=== PATIENT | male | born 1960 | race Caucasian/White ===

== ENCOUNTER → 2017-07-10 16:33 | Outpatient (CLI) | payer OTHER, SELFPAY ==
[2017-07-10 18:23] LABS: Hemoglobin A1c 6.7 % (4.2-6.3)
== END ==
PROVIDERS: Family Provider Family Medicine; PCP Family Medicine; Visit Provider Family Medicine
DX: E11.42 Type 2 diabetes mellitus with diabetic polyneuropathy (principal)
CPT/HCPCS: 36415; 83036

== ENCOUNTER → 2017-12-14 17:19 | Outpatient (CLI) | payer BC, SELFPAY ==
--- NOTE | 2017-12-14 | BLA_PTH ---
PATIENT: KATALINA ZEPEDA LOC: [facility] U#:[id number] AGE/SX: 65/M ROOM: RE12/14/[address]: Dr. Oskar Mcgarry MD : 1960 BED: DIS: SPEC #: [id number] RECD: 12/15/17 08:02 STATUS: EMIL OTF #: [id number] STEF: 12/14/17 00:[address]: Oskar Mcgarry DEPT: SURGICAL PATHOLOGY RECD BY: Johann Reyes ENTERED: 12/15/17 08:02 SP TYPE: BLADDER BX OTHR DR: Dr. Gasper Liang MD Tissues: Urinary bladder, NOS Procedures: Surgery Specimen Level V HEADER OPERATION: Bladder biopsy PRE-OP DIAGNOSIS: Hematuria TISSUE SUBMITTED: Bladder biopsy MICROSCOPIC DIAGNOSIS Urinary bladder, TUR: Urothelial carcinoma. See cancer checklist below. AM:se 12/17/17 COMMENT BLADDER CANCER (TUR) SUMMARY: Procedure - biopsy Histologic type ? urothelial carcinoma Associated epithelial lesions ? none identified Histologic grade ? low grade (WHO) Tumor configuration ? focal papillary Detrusor muscle ? not present in biopsy. Lymph-Vascular invasion ? not identified Microscopic extent of tumor ? noninvasive carcinoma Additional pathologic findings ? mild chronic inflammation. The above summary is in compliance with [employer] (CAP) Cancer Protocols Checklist and [place] Joint Committee on Cancer (AJCC), Staging Manual, 8th Ed. Reference is made to the patient?s previous bladder biopsy from 05/26/17 in which focal high grade urothelial dysplasia was identified. MICROSCOPIC DESCRIPTION Slides are reviewed. GROSS DESCRIPTION Received is one container labeled with the patient's name and not further designated. The specimen consists of one irregular fragment of light harden soft tissue that measures 0.2 x 0.1 x 0.1 cm. The specimen is totally submitted in one cassette. / AM:se 12/15/17 TC:0 CPT: 49536 ADDENDUM ADDENDUM ADDENDUM ADDENDUM ADDENDUM ADDENDUM ADDENDUM ADDENDUM ADDENDUM ADDENDUM ADDENDUM ADDENDUM 09/07/2018 11:38 ADDENDUM 09/07/2018 11:38 ADDENDUM 09/07/2018 11:38 ADDENDUM 09/07/2018 11:38 ADDENDUM 09/07/2018 11:38 This addendum is added to incorporate an outside pathology consultation report. The case was examined at [facility] (#[id number]) and the following diagnosis was rendered. Urinary bladder, TUR: Urothelial carcinoma in situ. Muscularis propria is not identified. Please see complete above mentioned consultation report in EMR
== END ==
PROVIDERS: Family Provider Family Medicine; PCP Family Medicine; Visit Provider Urology
DX: R31.9 Hematuria, unspecified (principal)
CPT/HCPCS: 88305; 88307

== ENCOUNTER → 2018-02-02 08:34 | Outpatient (CLI) | payer BC, SELFPAY ==
[2018-02-02 10:44] LABS: Anion Gap 7 (5-15); BUN 15 mg/dL (7-18); BUN/Creat Ratio 13.6 RATIO (10-20); Calcium,Total 8.9 mg/dL (8.5-10.1); Chloride 106 mmol/L (98-107); Cholesterol 126 mg/dL (200); EST Glomerular Filtration Rate 73 mL/min (>60); Est Glom Filt Rate - Afr Amer 88 mL/min (>60); Glucose 132 mg/dL (74-106); High Density Lipoprotein 29 mg/dL; Potassium 4.6 mmol/L (3.5-5.1); Sodium Level 140 mmol/L (136-145); Triglycerides 207 mg/dL; Very Low Density Lipoprotein 41 mg/dL (5-40)
== END ==
PROVIDERS: Family Provider Family Medicine; PCP Family Medicine; Visit Provider Family Medicine
DX: I10 Essential (primary) hypertension (principal)
CPT/HCPCS: 36415; 80048; 80061

== ENCOUNTER 2018-06-04 10:06 | Day surgery (SDC) | payer BC, SELFPAY ==
--- NOTE | 2018-06-03 12:56 | EKG12_ITS ---
Test Reason : PRE OP Blood Pressure : / mmHG Vent. Rate : 043 BPM Atrial Rate : 043 BPM P-R Int : 170 ms QRS Dur : 092 ms QT Int : 430 ms P-R-T Axes : 087 066 085 degrees QTc Int : 363 ms Marked sinus bradycardia with sinus arrhythmia Septal infarct , age undetermined Abnormal ECG Confirmed by MEGAN CASSIDY, USAMA ([id number]), supervising film or videotape editor YOGESH NASCIMENTO ([id number]) on 06/04/2018 1:16:04 PM Referred By: Oskar Mcgarry Confirmed By:USAMA GUZMAN MD
[2018-06-03 14:03] LABS: Hematocrit 54.7 % (40-54); Hemoglobin 18.7 g/dl (13.0-16.5); Mean Corp Hgb Conc 34.2 g/gl (32-36); Mean Corpuscular Hgb 32.4 pg (27.0-32.0); Mean Corpuscular Volume 94.6 fL (80-94); Mean Platelet Vol. 11.1 fl (6.2-12.0); Platelet Count 135 K/mm3 (150-450); RBC Distribution Width SD 48.2 fl (35.1-43.9); Red Blood Count 5.78 M/mm3 (4.6-6.2); White Blood Count 5.7 K/mm3 (4.4-11.0)
[2018-06-03 14:04] LABS: Scan Indicated on CBC? Y/N NO
[2018-06-03 14:16] LABS: Hemoglobin A1c 6.9 % (4.2-6.3)
[2018-06-03 14:35] LABS: Anion Gap 6 (5-15); BUN 18 mg/dL (7-18); BUN/Creat Ratio 19.6 RATIO (10-20); Chloride 105 mmol/L (98-107); Creatinine, Serum 0.92 mg/dL (0.70-1.30); EST Glomerular Filtration Rate 90 mL/min (>60); Est Glom Filt Rate - Afr Amer 108 mL/min (>60); Glucose 148 mg/dL (74-106); Potassium 4.9 mmol/L (3.5-5.1); Sodium Level 141 mmol/L (136-145)
[2018-06-04] VITALS (7 sets, daily range): BP systolic 114–143; BP diastolic 55–71; PULSE 45–77; RESP 16–18; TEMP 36.1–36.3; O2SAT 92–97; BMI 37.5
--- NOTE | 2018-06-04 | IMM_PTH ---
PATIENT: KATALINA ZEPEDA LOC: [facility] [place] U#:[id number] AGE/SX: 58/M ROOM: RE06/04/[address]: Dr. Oskar Mcgarry MD : 1960 BED: DIS: 06/04/2018 SPEC #: [id number] RECD: 06/09/18 12:26 STATUS: EMIL REQ #: [id number] STEF: 06/04/18 00:[address]: Oskar Mcgarry DEPT: IMMUNOHISTOCHEMISTRY RECD BY: Mary Beth Hansen ENTERED: 06/09/18 12:27 SP TYPE: IMMUNO OTHR DR: MD Dr. Gasper Vealzquez MD Tissues: Urinary bladder, NOS Procedures: CK20 (add) P53 (add) CK7 (initial) PHYSICIAN & INSTITUTION [place] [id number] SPECIMEN INFORMATION: Tissue Source: Bladder tumor Clinical Info: Malignant neoplasm of overlapping sites of bladder Specimen Number: [id number] CPT code: 49975, 93073 x2 METHODOLOGY: Deparaffinized sections of prefer/formalin-fixed tissue or PAP/DQ stained slides are incubated with monoclonal/polyclonal antibodies/oligonucleotide probes. Localization is made via biotin free immunoperoxidase method. Appropriate controls are performed and reacted as expected. Results on target cell population are indicated in the following table: RESULTS: ANTIBODY / CLONE RESULT CK7 (OV-TL12/30) positive CK20 (KS20.8) positive P53 (DO-7) positive These tests were developed and their performance characteristics determined by [facility]. They may not have been cleared or approved by the U.S. Food and Drug Administration. The FDA has determined that such clearance or approval is not necessary. INTERPRETATION: Bladder tumor, TUR: Consistent with urothelial carcinoma in situ. AM:se 06/10/18
[2018-06-04 10:51] LABS: Bedside Glucose 122 mg/dL (70-110)
--- NOTE | 2018-06-04 12:20 | BLB_PTH ---
PATIENT: KATALINA ZEPEDA LOC: [facility] [place] U#:[id number] AGE/SX: 58/M ROOM: RE06/04/[address]: Dr. Oskar Mcgarry MD : 1960 BED: DIS: 06/04/2018 SPEC #: [id number] RECD: 06/04/18 15:29 STATUS: EMIL OTF #: [id number] STEF: 06/04/18 12:[address]: Oskar Mcgarry DEPT: SURGICAL PATHOLOGY RECD BY: Yves Elkins ENTERED: 06/07/18 13:20 SP TYPE: TURB OTHR DR: MD Dr. Gasper Velazquez MD Tissues: Urinary bladder, NOS Procedures: Surgery Specimen Level V HEADER OPERATION: Cystoscopy, transurethral resection of bladder PRE-OP DIAGNOSIS: Malignant neoplasm of overlapping sites of bladder TISSUE SUBMITTED: Bladder tumor MICROSCOPIC DIAGNOSIS Urinary bladder tumor, transurethral resection: Fragments of urothelial mucosa consistent with urothelial carcinoma in situ. See cancer checklist below. AM:rg 06/10/18 COMMENT BLADDER CANCER (TUR) SUMMARY: Procedure - TURBT Histologic type - urothelial (transitional cell carcinoma. Associated epithelial lesions - none identified Histologic grade - low grade Tumor configuration - flat (papillary carcinoma in situ) Detrusor muscle - present and free of tumor. 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 The above summary is in compliance with [employer] (CAP) Cancer Protocols Checklist and [place] Joint Committee on Cancer (AJCC), Staging Manual, 8th Ed. Immunohistochemistry ([id number]) supports the above diagnosis. Please make reference to previous specimen ([id number]) urinary bladder lesion, TUR with diagnosis of focal high grade urothelial dysplasia and ([id number]) urinary bladder, TUR with diagnosis of urothelial carcinoma. Case has been reviewed in consultation with Dr. Allison who concurs with the above diagnosis. IDC:[email or web address] MICROSCOPIC DESCRIPTION Slides are reviewed. GROSS DESCRIPTION Received in fixative is one container labeled with the patient's name and designated bladder tumor. The specimen consists of multiple irregular fragments of light harden soft tissue that in aggregate measure 2.5 x 1.5 x 0.3 cm. The specimen is totally submitted in one cassette. / SJ:rg 06/07/18 TC:0 CPT: 73544 ADDENDUM ADDENDUM ADDENDUM ADDENDUM ADDENDUM ADDENDUM ADDENDUM ADDENDUM ADDENDUM ADDENDUM ADDENDUM 09/07/2018 11:40 ADDENDUM 09/07/2018 11:40 ADDENDUM 09/07/2018 11:40 ADDENDUM 09/07/2018 11:40 ADDENDUM 09/07/2018 11:40 This addendum is added to incorporate an outside pathology consultation report. The case was examined at [facility] (#[id number]) and the following diagnosis was rendered. Urinary bladder tumor, transurethral resection: Urothelial carcinoma in situ. Muscularis propria is negative for neoplasia. Please see complete above mentioned consultation report in EMR
[2018-06-04] MEDS: Cefazolin 2 GM in 0.9% Normal Saline 100 ML IV (14:15)
--- NOTE | 2018-06-04 14:53 | PCM.DC.URO ---
Discharge Diet: Light diet - advance as tolerated Discharge Activity: Return to Normal Activity Call your doctor if your incision/area has: Continuous Slow Oozing, Sudden Increased Bleeding, Increased Pain/ Swelling, Increased Redness, Foul Smelling Discharge, Swelling at the incision site Call your doctor if you observe: Fever of 101 or Higher Allergies/Adverse Reactions: Allergies codeine Allergy (Verified 06/03/18 11:46) Other MIGRAINE Medications to take at Discharge Albuterol Inhaler [Ventolin Hfa (SP)] 1 - 2 puff INHALATION Q4H PRN PRN 05/14/17 Amlodipine Besylate [Norvasc] 10 mg PO DAILY 05/14/17 Aspirin [Aspirin EC] 81 mg PO DAILY 05/14/17 Carvedilol [Coreg] 25 mg PO BID 05/14/17 Losartan Potassium [Cozaar] 50 mg PO DAILY 05/14/17 Metformin HCl [Glucophage] 1,000 mg PO BIDCM 05/14/17 Multivit-Min/FA/Lycopen/Lutein [Centrum Silver Men Tablet] 1 each PO DAILY 05/14/17 [place]-3 Fatty Acids [Fish Oil] 500 mg PO DAILY 05/14/17 Empagliflozin [Jardiance] 10 mg PO DAILY 06/03/18 Oxybutynin [Ditropan] 5 mg PO TID 06/03/18 Orders to be completed after discharge: 12 Lead EKG [CVS] Time Frame: 06/03/18, Location: None Selected Hemoglobin A1c Time Frame: 06/03/18, Location: Laboratory Basic Metabolic Profile (BMP) Time Frame: 06/03/18, Location: Laboratory CBC-Complete Blood Cnt No Diff Time Frame: 06/03/18, Location: Laboratory Primary Care Physician: Gasper Liang MD [Primary Care Provider] - Test Results: Test results from this visit will be discussed in further detail at your follow-up appointment, if applicable. Please Follow Up With: Oskar Mcgarry MD When: in 2 weeks, please call to make an appointment.
--- NOTE | 2018-06-04 15:00 | OP.PCM_ITS ---
Report of Operation Date of Procedure: 06/04/18 Pre-Operative Diagnosis: History of bladder biopsy in the past with dysplasia and history of high-grade dysplasia and history of biopsy with low-grade bladder cancer. Erythematous mucosa throughout the bladder and the dome Post-Operative Diagnosis: Same Surgery/Procedure Performed:: Transurethral resection of the mucosa large resection involving the dome left lateral wall right lateral wall and cauterization Description of Surgical Findings:: 58-year-old male has a somewhat confusing history he does have a lot of frequency urethral irritation and voiding problems we did a biopsy of his aneesh dder about a year ago came back with high-grade dysplasia set of the urine cytology came back negative, we then did a bladder biopsy this past summer that came back with low-grade bladder cancer and follow-up cystoscopy he still had erythematous red area in the back of the bladder and the dome of the bladder lateral moffett to be these look suspicious for carcinoma in situ so I recommended we do biopsies and cauterization of these areas. Patient was taken back to the operating room after smooth induction of general anesthesia he was placed in dorsolithotomy position the penis and testicles are prepped and draped in usual sterile fashion went into the bladder with a 24 Salv[place] noncontinuous flow resectoscope the entire urethra was normal the prostate was normal inside the bladder left to right drug trigone was normal he did have a lot of bumpy reddish mucosa on the right lateral wall allowed bumpy reddish mucosa in the dome of the bladder and the left lateral wall I resected in the left lateral wall resected in the dome of the bladder resected right lobe right lateral wall pretty large resection left tissue area resected this is all extensively cauterized tissue that was sent off did not appear to be invasive cancer but appear to be more of either inflammation of the lining or carcinoma in situ is my suspicion after again extensive amount of resection cauterization was done that all the pieces of tissue were removed and the bladder we instilled mitomycin-C into the bladder and then took out the scope the patient's anesthetic was reversed plan to see him back in about 2 weeks to review the pathology report we will go home today without a catheter. Type of Anesthesia:: General Drains: none - Admit VTE Documentation VTE Present on Admission: No
[2018-06-04 15:51] LABS: Bedside Glucose 131 mg/dL (70-110)
--- NOTE | 2018-06-04 17:19 | SUR.PHASEII ---
INFORMED PT THAT DR. FLORES ORDERED A SUGGS CATHETER TO BE INSERTED AND FOR THE PT TO BE D/C WITH CATHETER AND TO CALL HIS OFFICE NEXT WEEK FOR THE SUGGS CATHETER TO BE REMOVED. PT REFUSED SUGGS CATHETER. NEW BAG OF LACTATED RINGERS HUNG AND MORE WATER PROVIDED TO PT.
== END 2018-06-04 17:31 | disposition home or self-care (01) ==
LOC: SDC 10:06 → AC 10:07
PROVIDERS: Family Provider Family Medicine; PCP Family Medicine; Referring Provider Urology; Visit Provider Urology
PROC: 0TBB8ZZ Excision of Bladder, Via Natural or Artificial Opening Endoscopic (ICD-10-PCS; CPT 52240; principal; 2018-06-04 12:10)
DX: C67.8 Malignant neoplasm of overlapping sites of bladder (principal); L53.8 Other specified erythematous conditions; I10 Essential (primary) hypertension; E11.9 Type 2 diabetes mellitus without complications; J44.9 Chronic obstructive pulmonary disease, unspecified; F17.200 Nicotine dependence, unspecified, uncomplicated; J45.909 Unspecified asthma, uncomplicated; Z79.82 Long term (current) use of aspirin; Z79.84 Long term (current) use of oral hypoglycemic drugs; Z79.51 Long term (current) use of inhaled steroids
CPT/HCPCS: 52240; 53899; 36415; 80048; 82962; 83036; 85027; 88307; 88341; 88342; 93005; J7120; J2405; J3490; J9280

== ENCOUNTER 2018-06-16 05:01 | Emergency (ER) | payer BC, SELFPAY ==
[2018-06-04 10:32] VITALS: BMI 37.5
[2018-06-16 05:04] VITALS: BP 145/73; PULSE 60; RESP 14; TEMP 36.8; O2SAT 94; BMI 37.3
--- NOTE | 2018-06-16 05:20 | RAD_ITS ---
STUDY: X-RAY - RIGHT FOOT CLINICAL: Male, 58 years old. Trauma TECHNIQUE: 2 view(s) of the foot. COMPARISON: None. FINDINGS: Normal talus, calcaneus, and tarsal bones. Normal visualized subtalar, talonavicular, calcaneocuboid, tarsal and tarsometatarsal articulations. Normal metatarsi. Normal metatarsophalangeal joint of the great toe. Normal tibial and fibular sesamoid bones. Normal interphalangeal joint of the great toe. Normal phalanges of the great toe. Normal second through fifth metatarsophalangeal joints. Normal interphalangeal joints and phalanges of the lesser toes. There is a 2 mm density in the plantar soft tissues adjacent to the first metatarsal phalangeal joint which could be foreign body. RAD/Foot 2 Views IMPRESSION: There are NO fractures. There is a 2 mm density in the plantar soft tissues adjacent to the first metatarsal phalangeal joint which could be foreign body. Electronically Signed: Jimbo Mittal MD at 5:53 EST , Service support ,
--- NOTE | 2018-06-16 06:50 | NURSING ---
DR VINCENT ON HER WAY TO SEE PATIENT
--- NOTE | 2018-06-16 07:18 | NURSING ---
DR VINCENT IN WITH PATIENT
--- NOTE | 2018-06-16 07:47 | ED.VISSUMM ---
- ER Visit Summary Date of Service: 06/16/18 Chief Complaint: Foreign body right foot History of Present Illness: The patient is a [address] Gasper Carter. He has a history of type 2 diabetes and peripheral neuropathy. Reports that today he stepped on a piece of broken glass and it is stuck in his foot. He denies any pain. Review of systems: General: No fever, chills, cold sweats. Cardiovascular: No chest pain, palpitations. Respiratory: No cough, shortness of breath, dyspnea on exertion. Gastrointestinal: No abdominal pain, nausea, vomiting, diarrhea, melena, or hematochezia. Genitourinary: No dysuria, frequency, hematuria. Skin: No rash. Neuro: No headache, numbness, weakness. Physical Examination: Vitals: Stable. Afebrile. General: Well-nourished and well-developed. Head: Normocephalic atraumatic. Neck: Supple, no lymphadenopathy. No JVD. Nontender. Cardiovascular: Regular rate and rhythm. No murmurs. Respiratory: No respiratory distress. Clear to auscultation bilaterally. Abdominal: Soft, nontender, nondistended, normal bowel sounds. No guarding, rebound, or peritoneal signs. Back: Nontender. Extremities: Palpable 1 cm foreign body dorsum of the right foot over the proximal portion of the fifth metatarsal. There is no active bleeding., no edema. Skin: Normal color, no rash. Neurologic: Alert and oriented ?3. Cranial nerves II through XII are intact. Normal strength and sensation. Psych: Normal affect. Test Results: X-ray shows no obvious foreign body. Emergency Department Course and Treatment: Patient had the area anesthetized. I attempted to remove this without success. Patient was discussed with Dr. Cornejo. She presented to the emergency department was able to extend the incision further and remove this. Patient tolerated it well. Treatment Plan: Patient will be discharged instructions follow-up Dr. Cornejo in 1 week for another exam. Is instructed to keep the area clean, dry and with a dressing intact. is instructed to inspect the area daily to make sure it does not appear to be getting infected. Return to the emergency department for any worsening symptoms. Disposition: To home in improved and stable condition. Impression: 1. Foreign body right foot, removed. This note was generated with Dragon dictation software. It may contain incorrect words, spelling, and punctuation that were not noted in review of the chart prior to signing ED Disposition - Plan for ED Patient: Disposition: Home or Assisted Living Chief Complaint: Foreign Body Instructions: ED Foreign Body Soft Tissue Removed Referrals: Marie Cornejo DPM [STAFF PHYSICIAN] - 1 Week
[2018-06-16 08:00] VITALS: BP 115/63; PULSE 51; RESP 16; O2SAT 96
--- NOTE | 2018-06-16 08:07 | PCM.CONS.GEN ---
Problem List (1) Foreign body in foot, right Status: Acute (2) Type 2 diabetes mellitus with diabetic polyneuropathy Status: Chronic Reason for Consult Date of Consultation: 06/16/18 Reason for Consultation: Glass in foot History of Present Illness: The patient is a 58 year old M was seen in the emergency room this morning for right foot foreign body. He reports he thinks he slept and a sliver of glass in his kitchen within the past day. His pain is mild. He reports he does have some loss of sensation and rest paresthesias consistent with diabetic neuropathy. He denies claudication or history of other wounds. He denies illness. His spouse did try to remove the glass and was unable to obtain this. He presented to the emergency room and attempted foreign body was also performed. He relates his tetanus status is up-to-date within the past 10 years. He denies other injuries. Past Medical History Past Medical History (Chronic Problems): Chronic Problems Type 2 diabetes mellitus with diabetic polyneuropathy (Chronic) Allergies codeine Allergy (Verified 06/16/18 05:02) Other MIGRAINE Home Medications: Ambulatory Orders Medication Instructions Recorded Albuterol Inhaler [Ventolin Hfa 1 - 2 puff INHALATION Q4H PRN PRN 05/14/17 (SP)] Amlodipine Besylate [Norvasc] 10 mg PO DAILY 05/14/17 Aspirin [Aspirin EC] 81 mg PO DAILY 05/14/17 Carvedilol [Coreg] 25 mg PO BID 05/14/17 Losartan Potassium [Cozaar] 50 mg PO DAILY 05/14/17 Metformin HCl [Glucophage] 1,000 mg PO BIDCM 05/14/17 [place]-3 Fatty Acids [Fish Oil] 500 mg PO DAILY 05/14/17 Oxybutynin Chloride [Ditropan Xl] 10 mg PO BID #60 tab.er.24 06/04/18 Lives: Spouse/ Significant Other, With Family Smoking Status: Current some day smoker Tobacco Use: Cigarettes Review of Systems Constitutional: Denies: Chills, Fever, Weakness Cardiovascular: Denies: Claudication Respiratory: Denies: Shortness of Breath Gastrointestinal: Denies: Nausea, Vomiting Musculoskeletal: Reports: Foot Pain. Denies: Joint Tenderness Skin: Reports: Skin Changes, Wounds Neurological: Reports: Tingling - Physical Exam General: Alert, Oriented x3, Cooperative HEENT: Atraumatic Extremities: No cyanosis, Capillary Refill Less than 3 Seconds - All digits bilateral foot, No Calf Tenderness - Negative Santana and Worley bilateral, Edema - Mild bilateral lower extremity, Peripheral Pulses Normal - 2 out of 4 PT and DP pulses bilateral Skin: Ulcer/ Wound - Foreign body puncture site with approximately extended incision 1 cm to plantar lateral foot proximal to the fifth metatarsal head region has hematogenous drainage only. There is no purulence necrosis or infection. Upon deep wound bed palpation with instrumentation, foreign body was palpated and audible. This incision was further extended to a total length of 2 cm and 2.2 x 0.5 cm glass sliver was removed in total. No additional foreign bodies were palpated, visualized, or audible on instrument wound exploration. No other foreign body was identified. No maceration Musculoskeletal: - - Active range of motion digits x5 bilateral. Pain on palpation to foreign body wound site right foot. No crepitus or bogginess on palpation. Prior to removal, the the foreign body prominence was palpated just deep skin surface proximal to the incision area Neurological: Sensory exam intact to light touch and pain Psych/Mental Status: Normal Affect, Appropriate Vital Signs Temp Pulse Resp BP Pulse Ox 98.2 F 51 L 16 115/63 96 06/16/18 05:04 06/16/18 08:00 06/16/18 08:00 06/16/18 08:00 06/16/18 08:00 Oxygen Delivery Method Room Air Weight: 118 kg Body Mass Index (BMI) 37.3 Assessment/Plan All Active Problems Foreign body in foot, right (Acute) Right foot foreign body Diabetic neuropathy I reviewed and discussed his case. His x-rays were reviewed without acute fracture dislocation, soft tissue emphysema. There is some altered radiolucency along the plantar aspect of the foot on plain x-ray that is either consistent with this foreign body site or his anatomic contour of the plantar surface of the foot. He also has a metallic foreign body near the first metatarsal head which does not appear to correlate clinically at this time. Upon arrival there is a foreign body entry site with a small incision extended proximally. This area was prepped with Hibiclens and additional local anesthetic was administered proximal to the site to achieve better anesthesia; 5 cc of lidocaine were administered. Clean instrumentation was used to investigate the wound and an approximately 2.2 cm x 0.5 cm glass sliver was identified via palpation and pulled in total from the wound bed. The site was copiously irrigated with normal saline. Deep wound culture was obtained. He was reassured no local signs of infection, purulence, necrosis or other foreign body were identified in the wound at this time. The culture was sent for aerobic and anaerobic for future use in case infection develops; he understands he is high risk due to his diabetic status. Retention sutures with 3-0 nylon were applied to reapproximate the skin. Gauze and Douglas dressing were applied. He was advised to keep this clean, dry, and intact until follow-up [facility] within one week with Dr. Cornejo. He was also advised to call sooner if he has any development of infection signs; he demonstrates understanding. To avoid soaking this foot. To avoid pressure to his foot by walking on his heel with a surgical shoe; I recommend this is dispensed while he is in the emergency room. 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 Thank you for the consultation. I answered all of the patient's questions. Marie Cornejo DPM, FACFAS [facility] [phone]
== END 2018-06-16 08:03 | disposition home or self-care (01) ==
PROVIDERS: Emergency Provider Emergency Medicine; Family Provider Family Medicine; PCP Family Medicine
DX: S91.341A Puncture wound with foreign body, right foot, initial encounter (principal); E11.42 Type 2 diabetes mellitus with diabetic polyneuropathy; I10 Essential (primary) hypertension; F17.210 Nicotine dependence, cigarettes, uncomplicated; Z85.51 Personal history of malignant neoplasm of bladder; Z79.51 Long term (current) use of inhaled steroids; Z79.82 Long term (current) use of aspirin; Z79.84 Long term (current) use of oral hypoglycemic drugs; Z79.899 Other long term (current) drug therapy; W25.XXXA Contact with sharp glass, initial encounter; W45.8XXA Other foreign body or object entering through skin, initial encounter; Y93.01 Activity, walking, marching and hiking; Y92.090 Kitchen in other non-institutional residence as the place of occurrence of the external cause; Y99.8 Other external cause status
CPT/HCPCS: 73620; 87070; 87205; 99284

== ENCOUNTER → 2018-08-06 12:41 | Outpatient (CLI) | payer BC, SELFPAY ==
[2018-08-06 14:27] LABS: Vitamin B12 429 pg/mL (211-911)
== END ==
PROVIDERS: Family Provider Family Medicine; PCP Family Medicine; Referring Provider Family Medicine; Visit Provider Family Medicine
DX: E11.40 Type 2 diabetes mellitus with diabetic neuropathy, unspecified (principal)
CPT/HCPCS: 36415; 82607

== ENCOUNTER → 2018-11-04 | Outpatient (CLI) | payer BC, SELFPAY ==
--- NOTE | 2018-11-04 | CYSPIN_PTH ---
PATIENT: KATALINA ZEPEDA LOC: [facility] U#:[id number] AGE/SX: 58/M ROOM: RE11/04/[address]: Dr. Oskar Mcgarry MD : 1960 BED: DIS: 11/04/2018 SPEC #: [id number] RECD: 11/05/18 09:18 STATUS: EMIL OTF #: [id number] STEF: 11/04/18 00:[address]: Oskar Mcgarry DEPT: CYTOLOGY RECD BY: Alberto Becerril ENTERED: 11/05/18 09:19 SP TYPE: CYSPIN FL OTHR DR: Dr. Gasper Liang MD Tissues: Urine Procedures: Pap Stain (control) Special Stain Group II Cytospin Fluid HEADER OPERATION: Not noted PRE-OP DIAGNOSIS: Bladder CA TISSUE SUBMITTED: Urine for cytology DIAGNOSIS CYTOLOGY Urine for cytology (cytospin): Rare atypical urothelial cells present. See comment. AM:se 11/09/18 COMMENT The findings are nonspecific and could represent a variety of conditions including infection, urolithiasis, instrumentation and low grade urothelial neoplasm. Clinical correlation is necessary. CYTOLOGY STUDY Slides are reviewed. CYTOLOGY GROSS Received is 75 ml of cloudy orange fluid labeled with the patient's name and and designated per the requisition as urine. Submitted for cytology preparation. 11/05/18 TC:? CPT: 20195
[2018-11-04 17:22] LABS: Cytology, Body Fluid / CSF SEE PATHOLOGY REPORT
== END | disposition home or self-care (01) ==
LOC: LABSPEC 16:57
PROVIDERS: Family Provider Family Medicine; PCP Family Medicine; Referring Provider Urology; Visit Provider Urology
DX: C67.9 Malignant neoplasm of bladder, unspecified (principal)
CPT/HCPCS: 88108; 88313

== ENCOUNTER → 2019-02-03 | Outpatient (CLI) | payer BC, SELFPAY ==
--- NOTE | 2019-02-03 | CYSPIN_PTH ---
PATIENT: KATALINA ZEPEDA LOC: [facility] U#:[id number] AGE/SX: 58/M ROOM: RE02/03/[address]: Dr. Oskar Mcgarry MD : 1960 BED: DIS: 02/03/2019 SPEC #: [id number] RECD: 02/04/19 09:13 STATUS: EMIL RETamia #: [id number] STEF: 02/03/19 00:[address]: Oskar Mcgarry DEPT: CYTOLOGY RECD BY: Johann Reyes ENTERED: 02/04/19 09:13 SP TYPE: CYSPIN FL OTHR DR: Dr. Gasper Liang MD Tissues: Urine Procedures: Pap Stain (control) Special Stain Group II Cytospin Fluid HEADER OPERATION: Not noted PRE-OP DIAGNOSIS: Hematuria TISSUE SUBMITTED: Urine for cytology DIAGNOSIS CYTOLOGY Urine for cytology (Cytospin): Rare atypical urothelial cells with squamoid morphology. Acute inflammation. AM:sp 02/07/19 COMMENT A reactive/reparative process is favored. Reference is made to patient's history of urinary bladder in situ carcinoma. Clinical correlation is suggested. CYTOLOGY STUDY Slides are reviewed. CYTOLOGY GROSS Received is 90 ml of clear yellow fluid labeled with the patient's name and and designated per the requisition as urine. Submitted for cytology preparation. / ROSI:se 02/04/19 TC: ? CPT: 82463
[2019-02-03 17:19] LABS: Cytology, Body Fluid / CSF SEE PATHOLOGY REPORT
== END | disposition home or self-care (01) ==
PROVIDERS: Family Provider Family Medicine; PCP Family Medicine; Referring Provider Urology; Visit Provider Urology
DX: C67.9 Malignant neoplasm of bladder, unspecified (principal)
CPT/HCPCS: 88108; 88313

== ENCOUNTER → 2019-02-07 | Outpatient (CLI) | payer BC, SELFPAY ==
[2019-02-07 10:26] LABS: Anion Gap 6 (5-15); BUN 18 mg/dL (7-18); Calcium,Total 8.9 mg/dL (8.5-10.1); Chloride 106 mmol/L (98-107); Cholesterol 138 mg/dL (200); EST Glomerular Filtration Rate 81 mL/min (>60); Est Glom Filt Rate - Afr Amer 98 mL/min (>60); Glucose 146 mg/dL (74-106); High Density Lipoprotein 32 mg/dL; Potassium 4.5 mmol/L (3.5-5.1); Sodium Level 142 mmol/L (136-145); Triglycerides 227 mg/dL; Very Low Density Lipoprotein 45 mg/dL (5-40)
[2019-02-07 10:52] LABS: Microalbumin,Random Urine 42.4 mg/L (NO RANGE EST.)
== END | disposition home or self-care (01) ==
LOC: MFPLAB 08:24
PROVIDERS: Family Provider Family Medicine; PCP Family Medicine; Visit Provider Family Medicine
DX: I10 Essential (primary) hypertension (principal); E11.42 Type 2 diabetes mellitus with diabetic polyneuropathy
CPT/HCPCS: 36415; 80048; 80061; 82043; 82570

== ENCOUNTER 2019-02-18 11:17 | Day surgery (SDC) | payer BC, SELFPAY ==
--- NOTE | 2019-02-18 | IMM_PTH ---
PATIENT: KATALINA ZEPEDA LOC: [facility] [place] U#:[id number] AGE/SX: 58/M ROOM: RE02/18/[address]: Dr. Oskar Mcgarry MD : 1960 BED: DIS: 02/18/2019 SPEC #: [id number] RECD: 02/22/19 11:45 STATUS: EMIL REQ #: [id number] STEF: 02/18/19 00:[address]: Oskar Mcgarry DEPT: IMMUNOHISTOCHEMISTRY RECD BY: Mary Beth Hansen ENTERED: 02/22/19 11:46 SP TYPE: IMMUNO OTHR DR: Dr. Gasper Liang MD Tissues: Urinary bladder, NOS Procedures: CK20 (add) P53 (add) CK7 (initial) PHYSICIAN & INSTITUTION [place] [address] SPECIMEN INFORMATION: Tissue Source: Bladder biopsy Clinical Info: Carcinoma in situ Specimen Number: [id number] CPT code: 92269, 93673 x2 METHODOLOGY: Deparaffinized sections of prefer/formalin-fixed tissue or PAP/DQ stained slides are incubated with monoclonal/polyclonal antibodies/oligonucleotide probes. Localization is made via biotin free immunoperoxidase method. Appropriate controls are performed and reacted as expected. Results on target cell population are indicated in the following table: RESULTS: ANTIBODY / CLONE RESULT CK7 (OV-TL12/30) positive CK20 (KS20.8) negative P53 (DO-7) positive, a few cells These tests were developed and their performance characteristics determined by [facility]. They may not have been cleared or approved by the U.S. Food and Drug Administration. The FDA has determined that such clearance or approval is not necessary. INTERPRETATION: Bladder biopsy: Fragments of urothelial mucosa, negative for malignancy. SJ:se 02/22/19 Case has been reviewed in consultation with Dr. Cardozo who concurs with the above diagnosis. IDC:AM
[2019-02-18 11:45] LABS: Bedside Glucose 139 mg/dL (70-110)
[2019-02-18 11:46] VITALS: BP 132/67; PULSE 53; RESP 16; TEMP 36.6; O2SAT 96; BMI 35.7
[2019-02-18] MEDS: Lactated Ringers 1,000 ML 100 ML IV (11:59)
[2019-02-18 12:09] LABS: Hematocrit 50.7 % (40-54); Hemoglobin 17.6 g/dL (13.0-16.5); Mean Corp Hgb Conc 34.7 g/dL (32-36); Mean Corpuscular Hgb 31.9 pg (27.0-32.0); Mean Corpuscular Volume 91.8 fL (80-94); Mean Platelet Vol. 10.5 fl (6.2-12.0); Platelet Count 140 K/mm3 (150-450); RBC Distribution Width CV 13.3 % (11.6-14.6); Red Blood Count 5.52 M/mm3 (4.6-6.2); White Blood Count 5.7 K/mm3 (4.4-11.0)
--- NOTE | 2019-02-18 13:05 | BLA_PTH ---
PATIENT: KATALINA ZEPEDA LOC: [facility] [place] U#:[id number] AGE/SX: 58/M ROOM: RE02/18/[address]: Dr. Oskar Mcgarry MD : 1960 BED: DIS: 02/18/2019 SPEC #: [id number] RECD: 02/18/19 14:25 STATUS: EMIL KNAPPTamia #: [id number] STEF: 02/18/19 13:[address]: Oskar Mcgarry DEPT: SURGICAL PATHOLOGY RECD BY: Jordin Lutz ENTERED: 02/21/19 08:32 SP TYPE: BLADDER BX OTHR DR: Dr. 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 Negative for malignancy. SJ:se 02/22/19 COMMENT Immunohistochemistry ([id number]) supports the above diagnosis. This case has been reviewed in consultation who concurs with the above diagnosis. MICROSCOPIC DESCRIPTION Slides are reviewed. GROSS DESCRIPTION Received in fixative is one container labeled with the patient's name and designated bladder biopsy. The specimen consists of three irregular fragments of harden soft tissue that in aggregate measure 0.3 x 0.2 x 0.1 cm. The specimen is totally submitted in one cassette. / ROSI:se 02/21/19 TC:3 CPT: 06566
[2019-02-18] MEDS: Cefazolin 2 GM in 0.9% Normal Saline 100 ML IV (13:22)
--- NOTE | 2019-02-18 14:00 | PCM.DC.URO ---
Discharge Diet: Light diet - advance as tolerated Discharge Activity: Return to Normal Activity Suture Line Care: Avoid Pulling/Pushing, Avoid Pinching/Bending Allergies/Adverse Reactions: Allergies codeine Allergy (Verified 02/18/19 11:41) Other MIGRAINE Medications to take at Discharge Albuterol Inhaler [Ventolin Hfa (SP)] 1 - 2 puff INHALATION Q4H PRN PRN 05/14/17 Aspirin [Aspirin EC] 81 mg PO DAILY 05/14/17 Carvedilol [Coreg] 25 mg PO BID 05/14/17 [place]-3 Fatty Acids [Fish Oil] 500 mg PO DAILY 05/14/17 metFORMIN HCl [Glucophage] 1,000 mg PO BIDCM 05/14/17 Oxybutynin Chloride [Ditropan Xl] 10 mg PO DAILY 02/11/19 Ciprofloxacin [Cipro] 500 mg PO BID #6 tab 02/18/19 Hydrocodone/Acetaminophen [[place] 5-325 Tablet] 1 ea PO Q4H PRN PRN 5 Days #14 tab 02/18/19 The following prescriptions were given: Ciprofloxacin [Cipro] 500 mg PO BID #6 tab Prescription Printed Hydrocodone/Acetaminophen [[place] 5-325 Tablet] 1 ea PO Q4H PRN PRN 5 Days #14 tab PRN Reason: Pain Prescription Printed Primary Care Physician: Gasper Liang MD [Primary Care Provider] - Test Results: Test results from this visit will be discussed in further detail at your follow-up appointment, if applicable. Please Follow Up With: Oskar Mcgarry MD When: in 2 weeks, please call to make an appointment.
--- NOTE | 2019-02-18 14:03 | PCM.OPRPT ---
Report of Operation Date of Procedure: 02/18/19 Pre-Operative Diagnosis: Bladder cancer, carcinoma in situ Post-Operative Diagnosis: Same Surgery/Procedure Performed:: Cystoscopy biopsy extensive fulguration of a biopsy site on the dome of the bladder. Description of Surgical Findings:: 58-year-old male with a history of carcinoma in situ on recent cystoscopy was found to have a reddish raised lesion in the dome of the bladder the lesion is about 3 cm x 3 cm in size in the dome of the bladder today we will go to the right dome of the bladder and perform a resection of this with a cystoscopy. Patient was taken back to the operating room after smooth induction of anesthesia he was placed in dorsolithotomy position, penis and testicles were prepped and draped in usual sterile fashion, went to the bladder with a 21 Upper Sorbian rigid cystourethroscope, the entire length urethra is normal sphincter was normal verumontanum was normal, prostate was normal some mild obstruction in the prosthetic channel, identified the trigone this was normal identified the right and left ureteral orifices normal the posterior wall was normal left wall was normal right lobe is normal posterior wall is normal dome of the bladder on the right side there was reddish raised lesions I used both bluelight and regular light cystoscopy could clearly identify these both cystoscopies I then had to push down really hard in the bladder in order to get these lesions in my field use a 30 degree lens and did a biopsy several these biopsies were sent off. I used a cold cup forcep to do the biopsies of these biopsies were only the superficial mucosa there were not deep biopsies did not appear to be an invasive tumor does appear to be carcinoma in situ in the superficial area photograph was taken for the biopsies. To document. I then used a Bugbee electrode curve the electrode had to really bear down hard in the patient's belly location of these tumors were fairly difficult to get to I then cauterized this very carefully and slowly using the Bugbee electrode extremely difficult to get the location had to empty and and fill the bladder multiple times in order to push the bladder into my field he was a fairly obese patient. Once I have the area completely cauterized to my satisfaction that I had cauterized the area about 3 cm and 3 cm in size photographs were taken of the cauterization site and demonstrated the entire area was completely cauterized successfully. We then drained the bladder looked around the bladder again no other lesions were seen in the white light blue light cystoscopy patient was then taken back to the PACU in good condition he will follow-up in the office if the biopsies are positive he will need more BCG therapy treatments. Type of Anesthesia:: General Drains: none - Admit VTE Documentation VTE Present on Admission: No VTE Mechan Device Prophylaxis: SCD's
[2019-02-18 14:21] VITALS: BP 132/67; BP 138/59; PULSE 56; RESP 16; TEMP 36.7; O2SAT 92
[2019-02-18 14:30] VITALS: BP 120/60; BP 132/67; PULSE 54; RESP 16; O2SAT 93
[2019-02-18 14:41] LABS: Bedside Glucose 119 mg/dL (70-110)
[2019-02-18 14:45] VITALS: BP 115/62; BP 132/67; PULSE 53; RESP 16; TEMP 36.7; O2SAT 92
[2019-02-18 15:40] VITALS: BP 114/60; BP 132/67; PULSE 50; RESP 16; TEMP 36.3; O2SAT 95
== END 2019-02-18 15:50 | disposition home or self-care (01) ==
LOC: SDC 11:17 → AC 11:19
PROVIDERS: Anesthesiology; Family Provider Family Medicine; PCP Family Medicine; Referring Provider Urology; Visit Provider Urology
PROC: 0TBB8ZX Excision of Bladder, Via Natural or Artificial Opening Endoscopic, Diagnostic (ICD-10-PCS; CPT 52240; principal; 2019-02-18 12:55)
DX: N30.90 Cystitis, unspecified without hematuria (principal); D09.0 Carcinoma in situ of bladder; E11.9 Type 2 diabetes mellitus without complications; I10 Essential (primary) hypertension; J44.9 Chronic obstructive pulmonary disease, unspecified; F17.290 Nicotine dependence, other tobacco product, uncomplicated; Z79.82 Long term (current) use of aspirin; Z79.84 Long term (current) use of oral hypoglycemic drugs; Z79.51 Long term (current) use of inhaled steroids; Z79.899 Other long term (current) drug therapy
CPT/HCPCS: 52240; 82962; 85027; 88305; 88341; 88342; J7120; J2405

== ENCOUNTER → 2019-06-02 17:15 | Outpatient (CLI) | payer BC, SELFPAY ==
--- NOTE | 2019-06-02 16:00 | CYSPIN_PTH ---
PATIENT: KATALINA ZEPEDA LOC: [facility] U#:[id number] AGE/SX: 65/M ROOM: RE06/02/[address]: Dr. Oskar Mcgarry MD : 1960 BED: DIS: SPEC #: [id number] RECD: 06/03/19 10:52 STATUS: EMIL RETamia #: [id number] STEF: 06/02/19 16:[address]: Oskar Mcgarry DEPT: CYTOLOGY RECD BY: Alberto Becerril ENTERED: 06/03/19 10:52 SP TYPE: CYSPIN FL OTHR DR: Dr. Gasper Liang MD Tissues: Urine Procedures: Pap Stain (control) Special Stain Group II Cytospin Fluid HEADER OPERATION: Not noted PRE-OP DIAGNOSIS: Malignant neoplasm of bladder TISSUE SUBMITTED: Urine for cytology DIAGNOSIS CYTOLOGY Urine for cytology (cytospin): Rare atypical urothelial cells noted. Paucicellular specimen. 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 CYTOLOGY STUDY Slides are reviewed. CYTOLOGY GROSS Received is 5 ml of yellow cloudy fluid labeled with the patient's name and and designated per the requisition as urine. Submitted for cytology preparation. / se 06/03/19 TC:5 CPT: 49107
[2019-06-02 17:19] LABS: Cytology, Body Fluid / CSF SEE PATHOLOGY REPORT
== END ==
PROVIDERS: Family Provider Family Medicine; PCP Family Medicine; Referring Provider Urology; Visit Provider Urology
DX: C67.9 Malignant neoplasm of bladder, unspecified (principal)
CPT/HCPCS: 88108; 88313

== ENCOUNTER → 2019-08-08 08:22 | Outpatient (CLI) | payer BC, SELFPAY ==
[2019-08-08 10:42] LABS: Anion Gap 5 (5-15); BUN 12 mg/dL (7-18); BUN/Creat Ratio 10.8 RATIO (10-20); Calcium,Total 8.7 mg/dL (8.5-10.1); Chloride 100 mmol/L (98-107); Cholesterol 130 mg/dL (200); Creatinine, Serum 1.11 mg/dL (0.70-1.30); EST Glomerular Filtration Rate 72 mL/min (>60); Est Glom Filt Rate - Afr Amer 87 mL/min (>60); Glucose 338 mg/dL (74-106); High Density Lipoprotein 34 mg/dL; Potassium 4.2 mmol/L (3.5-5.1); Sodium Level 136 mmol/L (136-145); Triglycerides 253 mg/dL; Very Low Density Lipoprotein 51 mg/dL (5-40)
== END ==
PROVIDERS: PCP Family Medicine; Referring Provider Family Medicine; Visit Provider Family Medicine
DX: I10 Essential (primary) hypertension (principal)
CPT/HCPCS: 36415; 80048; 80061

== ENCOUNTER → 2019-09-08 | Outpatient (CLI) | payer BC, SELFPAY ==
--- NOTE | 2019-09-08 17:10 | CYSPIN_PTH ---
PATIENT: KATALINA ZEPEDA LOC: [facility] U#:[id number] AGE/SX: 59/M ROOM: RE09/08/[address]: Dr. Oskar Mcgarry MD : 1960 BED: DIS: 09/08/2019 SPEC #: [id number] RECD: 09/09/19 07:55 STATUS: EMIL RETamia #: [id number] STEF: 09/08/19 17:[address]: Oskar Mcgarry DEPT: CYTOLOGY RECD BY: Alberto Becerril ENTERED: 09/09/19 07:55 SP TYPE: CYSPIN FL OTHR DR: Dr. Gasper Liang MD Tissues: Urine Procedures: Pap Stain (control) Special Stain Group II Cytospin Fluid HEADER OPERATION: Not noted PRE-OP DIAGNOSIS: Carcinoma in situ bladder TISSUE SUBMITTED: Urine for cytology DIAGNOSIS CYTOLOGY Urine for cytology (cytospin): Negative for malignant cells. SJ:se 3/30/20 COMMENT Please make reference to previous specimen ([id number]) urinary bladder tumor, TUR with diagnosis of fragments of urothelial mucosa consistent with urothelial carcinoma in situ. CYTOLOGY STUDY Slides are reviewed. CYTOLOGY GROSS Received is 40 ml of yellow cloudy fluid labeled with the patient's name and and designated per the requisition as urine. Submitted for cytology preparation. / se 09/09/19 TC:4 CPT: 35448
[2019-09-08 17:12] LABS: Cytology, Body Fluid / CSF SEE PATHOLOGY REPORT
== END | disposition home or self-care (01) ==
PROVIDERS: PCP Family Medicine; Referring Provider Urology; Visit Provider Urology
DX: D09.0 Carcinoma in situ of bladder (principal)
CPT/HCPCS: 88108; 88313

== ENCOUNTER → 2020-01-05 17:40 | Outpatient (CLI) | payer BC, SELFPAY ==
--- NOTE | 2020-01-05 16:15 | CYSPIN_PTH ---
PATIENT: KATALINA ZEPEDA LOC: [facility] U#:[id number] AGE/SX: 65/M ROOM: RE01/05/[address]: Dr. Oskar Mcgarry MD : 1960 BED: DIS: SPEC #: [id number] RECD: 01/06/20 07:33 STATUS: EMIL RETamia #: [id number] STEF: 01/05/20 16:[address]: Oskar Mcgarry DEPT: CYTOLOGY RECD BY: Alberto Becerril ENTERED: 01/06/20 07:33 SP TYPE: CYSPIN FL OTHR DR: Dr. Gasper Liang MD Tissues: Urine Procedures: Pap Stain (control) Special Stain Group II Cytospin Fluid HEADER OPERATION: Not noted PRE-OP DIAGNOSIS: Hematuria TISSUE SUBMITTED: Urine for cytology DIAGNOSIS CYTOLOGY Urine for cytology (cytospin): Rare atypical urothelial cells with degenerative change. AM:se 01/09/20 CYTOLOGY STUDY Slides are reviewed. CYTOLOGY GROSS Received is 60 ml of cloudy orange fluid labeled with the patient's name and and designated per the requisition as urine. Submitted for cytology preparation. / se 01/06/20 TC:? CPT: 79898
[2020-01-05 17:41] LABS: Cytology, Body Fluid / CSF SEE PATHOLOGY REPORT
== END ==
PROVIDERS: PCP Family Medicine; Referring Provider Urology; Visit Provider Urology
DX: R31.9 Hematuria, unspecified (principal)
CPT/HCPCS: 88108; 88313

== ENCOUNTER → 2020-01-12 13:27 | Outpatient (CLI) | payer BC, SELFPAY ==
--- NOTE | 2020-01-12 13:30 | RAD_ITS ---
STUDY: X-RAY - RIGHT WRIST REASON FOR EXAM: Male, 59 years old. RIGHT WRIST INJURY. PAIN RIGHT WRIST POSTERIORLY FOR A COUPLE OF DAYS NOW. TECHNIQUE: 3 view(s) of the wrist were obtained. COMPARISON: None. FINDINGS: Normal visualized distal radius and ulna. Normal radiocarpal articulation. Normal distal radioulnar articulation. Normal carpal bones. Normal carpal articulations. Normal carpometacarpal articulation of the thumb. Normal second through fifth carpometacarpal articulations. Normal visualized metacarpal bones. Soft tissue swelling. RAD/Wrist min 3 Views IMPRESSION: Soft tissue swelling. Electronically Signed: Darinel Beatty, at 15:30 EDT , Service support ,
== END ==
LOC: MTLAB 13:29 → MTRAD 13:29
PROVIDERS: PCP Family Medicine; Referring Provider Family Medicine; Visit Provider Family Medicine
DX: S69.91XA Unspecified injury of right wrist, hand and finger(s), initial encounter (principal)
CPT/HCPCS: 73110

== ENCOUNTER → 2020-07-09 14:08 | Outpatient (CLI) | payer BC, SELFPAY | PROVIDERS: PCP Family Medicine; Visit Provider Family Medicine | DX: Z20.822 Contact with and (suspected) exposure to COVID-19 (principal) | CPT/HCPCS: 87635; U0003 ==

== ENCOUNTER → 2020-09-25 14:14 | Outpatient (CLI) | payer BC, SELFPAY ==
[2020-09-25 18:32] LABS: AST(SGOT) 17 U/L (15-37); Alanine Aminotransfer ALT/SGPT 18 U/L (16-61); Albumin, Serum 3.4 g/dL (3.2-5.0); Alkaline Phosphatase 56 U/L (45-117); Anion Gap 5 (5-15); BUN 14 mg/dL (7-18); BUN/Creat Ratio 14.2 RATIO (10-20); Bilirubin, Direct 0.19 mg/dL (0.00-0.30); Calcium,Total 9.5 mg/dL (8.5-10.1); Chloride 104 mmol/L (98-107); Cholesterol 139 mg/dL (200); Creatinine, Serum 0.99 mg/dL (0.70-1.30); EST Glomerular Filtration Rate 82 mL/min (>60); Est Glom Filt Rate - Afr Amer 99 mL/min (>60); Globulin 3.8 g/dL (2.2-4.2); Glucose 144 mg/dL (74-106); High Density Lipoprotein 28 mg/dL; Potassium 4.2 mmol/L (3.5-5.1); Protein, Total 7.2 g/dL (6.4-8.2); Sodium Level 138 mmol/L (136-145); Thyroid Stim Hormone (TSH) 1.35 uIU/mL (0.358-3.74); Triglycerides 323 mg/dL; Very Low Density Lipoprotein 65 mg/dL (5-40)
== END ==
PROVIDERS: PCP Family Medicine; Referring Provider Family Medicine; Visit Provider Family Medicine
DX: E11.9 Type 2 diabetes mellitus without complications (principal)
CPT/HCPCS: 36415; 80048; 80061; 80076; 84443

== ENCOUNTER 2021-03-06 17:23 | Inpatient (IN) | payer BC, SELFPAY ==
[2021-03-06] VITALS (8 sets, daily range): BP systolic 112–166; BP diastolic 52–74; PULSE 54–86; RESP 19–28; TEMP 37.1–37.4; O2SAT 86–96; BMI 39.2; BMI 40.3
--- NOTE | 2021-03-06 18:24 | ED.VIS.DYS ---
HPI History of Present Illness Chief Complaint: Shortness of Breath Informant: patient Onset/Context/Timing Onset: Days (2) Context: gradual Timing: Continuous Quality: Positive for Wheezing Worsened by: Nothing Relieved by: Nothing Associated Symptoms cough, rhinorrhea, ear pain, sore throat, subjective, chills and clear sputum Chest Pain: Positive for None Narrative Narrative: Patient presents with shortness of breath that has been getting worse over the past 2 days. Patient states it is gradually getting worse. Patient states he underwent chemotherapy recently and normally feels fatigued after this. Patient states that shortness of breath is worse. Patient admits to a cough with some clear sputum. Patient denies any chest pain. Patient admits to subjective chills. Patient states nothing makes his breathing worse and nothing makes it better. Patient also admits to some rhinorrhea, sore throat, and ear pain. [facility] Medical History (Updated 03/06/21 @ 21:[address] Roderick Magdaleno, DO) Bladder cancer COPD (chronic obstructive pulmonary disease) Diabetes HTN (hypertension) Obesity KYLER (obstructive sleep apnea) Home Medications albuterol sulfate [Ventolin Hfa (SP)] 1 - 2 puff INHALATION Q4H PRN PRN 05/14/17 [History Last Taken Unknown] aspirin 81 mg PO DAILY 05/14/17 [History Last Taken 02/10/19] carvedilol 25 mg PO BID 05/14/17 [History Last Taken 02/18/19] metformin 1,000 mg PO BIDCM 05/14/17 [History Last Taken Unknown] omega 6-bqa-cac-fish oil [Fish Oil] 500 mg PO DAILY 05/14/17 [History Last Taken Unknown] oxybutynin chloride 10 mg PO TID 02/11/19 [History Last Taken 02/18/19] ciprofloxacin HCl 500 mg PO BID #6 tab 02/18/19 [Rx Last Taken Unknown] glimepiride 4 mg PO DAILY 03/06/21 [History Last Taken Unknown] meloxicam 15 mg PO DAILY 03/06/21 [History Last Taken Unknown] tamsulosin 0.4 mg PO DAILY 03/06/21 [History Last Taken Unknown] Allergy/AdvReac Type Severity Reaction Status Date / Time codeine Allergy Other Verified 03/06/21 17:40 Surgical History (Updated 03/06/21 @ 21:[address] Stephany Heredia MD) History of bladder surgery History of carpal tunnel surgery History of cystoscopy History of inguinal hernia repair Social History Smoking Status: Current some day smoker tobacco type: cigarettes ROS ROS ED Constitutional Constitutional ED: Reports chills; Denies fever(s) Eyes Eyes: Reports blurry vision; Denies change in vision ENT ENT ED: Reports rhinorrhea and sore throat Cardiovascular Cardiovascular: Denies chest pain or palpitations Respiratory/Chest Respiratory/Chest: Reports cough and dyspnea Gastrointestinal Gastrointestinal: Denies nausea or vomiting Genitourinary Genitourinary ED: Denies dysuria or hematuria Musculoskeletal Musculoskeletal: Denies back pain or neck pain Integumentary Denies abscess or rash Neurologic Neurologic: Denies headache(s) or weakness Allergic/Immunologic Allergic/Immunologic ED: Denies mouth swelling or urticaria EXAM Physical Exam Const Vital Signs: 03/06/21 17:34 03/06/21 18:23 03/06/21 18:33 Temperature 99.2 F H 99.3 F H Temperature Source Oral Oral Pulse Rate 86 56 L 56 L Respiratory Rate 19 H 24 H 21 H Respiratory Effort Short of Breath Labored Accessory Muscle Use Respiratory Depth Shallow Respiratory Pattern Tachypnea Blood Pressure 116/62 129/61 H 129/61 H Blood Pressure Mean 80 83 83 Pulse Ox 86 96 94 Oxygen Delivery Method Nasal Cannula Nasal Cannula Nasal Cannula Oxygen Flow Rate (L/min) 4 4 4 03/06/21 21:50 Temperature 98.9 F Temperature Source Temporal Pulse Rate 57 L Respiratory Rate 28 H Respiratory Effort Respiratory Depth Respiratory Pattern Blood Pressure 112/52 L Blood Pressure Mean 72 Pulse Ox 95 Oxygen Delivery Method Nasal Cannula Oxygen Flow Rate (L/min) 4 Positive well nourished, well developed and obese General Appearance ED: well developed Nutritional Appearance: obese HEENT Reports moist mucous membranes Neck supple and no JVD Resp normal respiratory effort Auscultation: wheezes throughout Cardio regular rate and regular rhythm GI non-tender and non-distended Auscultation: normoactive bowel sounds Palpation: soft Neuro oriented x3, CN's II-XII intact bilaterally and no sensory deficits noted Sensorium / Orientation: alert Motor Exam: strength 5/5 throughout Psych mental status grossly normal MDM MDM MDM Narrative Medical decision making narrative: Patient was given 500 cc bolus of normal saline. Patient was given 6 puffs of an albuterol inhaler. Patient was also given a dose of Tylenol. CBC was normal. Comprehensive metabolic profile showed a slightly elevated carbon dioxide of 34. Lactate was normal. Portable 1 view chest x-ray was obtained. On my interpretation, lung slater are clear. There is normal cardiac silhouette. Bony thorax is normal. There is no acute process noted. Radiologist also interpreted the x-ray and agrees. Because of the persistent hypoxia, CTA of the chest was ordered. There is no evidence of pulmonary embolus. There are mild bilateral nonspecific interstitial infiltrates indeterminate for COVID-19. A COVID-19 PCR was ordered and is pending. Patient was given a dose of Decadron. Case was discussed with the hospitalist. She will admit the patient to PCU. Patient and family understood and were agreeable with the plan. All questions were answered. Lab Data Attestation: I reviewed the patient's lab results. Labs: Laboratory Results - last 24 hr 03/06/21 03/06/21 03/06/21 18:45 18:45 18:45 WBC 6.1 RBC 5.08 Hgb 16.4 Hct 47.7 MCV 93.9 MCH 32.3 H MCHC 34.4 RDW Std Deviation 44.8 H RDW Coeff of Dionicio 13.1 Plt Count 135 L MPV 10.1 Immature Gran % (Auto) 0.200 Neut % (Auto) 72.1 H Lymph % (Auto) 15.2 L [place] % (Auto) 10.9 H Eos % (Auto) 1.3 Baso % (Auto) 0.3 Absolute Neuts (auto) 4.4 Absolute Lymphs (auto) 0.93 Nucleated RBC % 0 Sodium 137 Potassium 4.2 Chloride 102 Carbon Dioxide 34.0 H Anion Gap 1 L BUN 12 Creatinine 0.96 Estim Creat Clear Calc 83.43 Est GFR (MDRD) Af Amer 102 Est GFR (MDRD) Non-Af 84 BUN/Creatinine Ratio 12.4 Glucose 141 H Lactic Acid 1.1 Calcium 8.9 Total Bilirubin 0.70 AST 16 ALT 13 L Alkaline Phosphatase 54 Total Protein 7.2 Albumin 3.2 Globulin 4.0 Albumin/Globulin Ratio 0.8 L Radiography Chest X-Ray - ED: 1 View, Read by ED Physician, Read by Radiologist and Normal Diagnostic Testing: Radiology Impression Chest X-Ray 03/06/21 18:56 IMPRESSION: No acute radiographic abnormalities. Electronically Signed: Matthew Cast MD at 19:11 EDT Tel , Service support , Chest CTA 03/06/21 20:25 IMPRESSION: Mild bilateral nonspecific interstitial infiltrates indeterminate for covid 19. Coronary artery disease. Electronically Signed: Bryson Rodriguez MD at 21:14 EDT , Service support , Discharge Plan Triage Chief Complaint: Shortness of Breath ED Provider: Roderick Magdaleno Dx/Rx/DC Orders Clinical Impression: Respiratory failure, COPD exacerbation, Suspected COVID-19 virus infection Prescriptions: No Action carvedilol 25 MG tablet 25 mg PO BID RF: 0 aspirin 81 MG tablet,delayed release (DR/EC) 81 mg PO DAILY RF: 0 metformin 1,000 MG tablet 1,000 mg PO BIDCM RF: 0 albuterol sulfate [Ventolin HFA] 1 INHALER inhaler 1 - 2 puff inhalation Q4H PRN PRN (Reason: Asthma) RF: 0 Fish Oil 500 MG capsule,delayed release(DR/EC) 500 mg PO DAILY RF: 0 oxybutynin chloride 10 MG tablet extended release 24hr 10 mg PO TID RF: 0 ciprofloxacin HCl 500 MG tablet 500 mg PO BID Qty: 6 RF: 0 meloxicam 15 mg Tablet 15 mg PO DAILY RF: 0 tamsulosin 0.4 mg capsule 0.4 mg PO DAILY RF: 0 glimepiride 4 mg tablet 4 mg PO DAILY RF: 0 Primary Care Provider: Gasper Liang Referrals: Gasper Liang MD [Primary Care Provider] - Disposition Disposition: Acute Care Hospital [facility]
[2021-03-06] MEDS: Acetaminophen 500 MG Tablet 1000 MG PO (18:46)
--- NOTE | 2021-03-06 18:56 | RAD_ITS ---
INDICATION: cough EXAMINATION/TECHNIQUE: X-RAY - XR Chest 1 View COMPARISON: None. FINDINGS: The lungs are clear. The cardiomediastinal silhouette is unremarkable. No pleural effusion or pneumothorax. No acute osseous abnormalities. RAD/Chest 1 View (Portable) IMPRESSION: No acute radiographic abnormalities. Electronically Signed: Matthew Csat MD at 19:11 EDT Tel , Service support ,
[2021-03-06 18:58] LABS: Absolute Lymphocyte Count 0.93 X10^3/uL (0.83-4.51); Absolute Neutrophil Count 4.4 X10^3/uL (2.0-7.7); Basophil# 0.02 X10^3/uL; Basophil% 0.3 % (0-1); Eosinophil# 0.08 X10^3/uL; Eosinophils% 1.3 % (0-5); Hematocrit 47.7 % (40-54); Hemoglobin 16.4 g/dL (13.0-16.5); Lymphocyte # 0.93 X10^3/ul (0.83-4.51); Lymphocyte % 15.2 % (19-41); Mean Corp Hgb Conc 34.4 g/dL (32-36); Mean Corpuscular Hgb 32.3 pg (27.0-32.0); Mean Corpuscular Volume 93.9 fL (80-94); Mean Platelet Vol. 10.1 fl (6.2-12.0); Monocyte# 0.67 X10^3/uL; Monocyte% 10.9 % (0-10); NRBC Flagged by Analyzer 0 % (0-5); Neutrophil # 4.41 X10^3/uL (2.7-7.7); Neutrophil % 72.1 % (47-70); Platelet Count 135 K/mm3 (150-450); RBC Distribution Width CV 13.1 % (11.6-14.6); RBC Distribution Width SD 44.8 fl (35.1-43.9); Red Blood Count 5.08 M/mm3 (4.6-6.2); White Blood Count 6.1 K/mm3 (4.4-11.0)
[2021-03-06 19:12] LABS: ALB/GLOB Ratio 0.8 RATIO (0.9-2.4); AST(SGOT) 16 U/L (15-37); Alanine Aminotransfer ALT/SGPT 13 U/L (16-61); Albumin, Serum 3.2 g/dL (3.2-5.0); Alkaline Phosphatase 54 U/L (45-117); Anion Gap 1 (5-15); BUN 12 mg/dL (7-18); BUN/Creat Ratio 12.4 RATIO (10-20); Calcium,Total 8.9 mg/dL (8.5-10.1); Chloride 102 mmol/L (98-107); Creatinine, Serum 0.96 mg/dL (0.70-1.30); EST Glomerular Filtration Rate 84 mL/min (>60); Est Glom Filt Rate - Afr Amer 102 mL/min (>60); Estimated Creatinine Clearance 83.43 ml/min; Glucose 141 mg/dL (74-106); Potassium 4.2 mmol/L (3.5-5.1); Protein, Total 7.2 g/dL (6.4-8.2); Sodium Level 137 mmol/L (136-145)
[2021-03-06 19:23] LABS: Lactic Acid 1.1 mmol/L (0.4-1.9)
--- NOTE | 2021-03-06 20:25 | CT_ITS ---
STUDY: CTA CHEST REASON FOR EXAM: Male, 60 years old. Hypoxia RADIATION DOSAGE (If Supplied By Facility): CTDIvol = ( 19.71 ) mGy, DLP = ( 576.50 ) mGycm TECHNIQUE: The examination was performed with the intravenous administration of IV 100mL Isovue-370. Post-processing of the angiographic images was performed, with multiplanar reformation and 3D reconstruction. Individualized dose optimization techniques were used for this CT. COMPARISON: None. FINDINGS: Normal enhancement of the main pulmonary artery and right and left pulmonary arteries. Normal enhancement of the bilateral peripheral pulmonary arteries. There is no demonstrated pulmonary embolism. Normal thoracic aorta and visualized great vessels. There is no demonstrated aortic dissection. Calcific coronary artery disease. Normal mediastinum. Normal hilar regions. Normal visualized trachea and bronchi. A few small bilateral groundglass opacities. Normal pulmonary parenchyma. Normal pleura. Normal chest wall structures. Normal osseous structures. Normal visualized upper abdomen. CT/CTA Chest W/WO Contrast IMPRESSION: Mild bilateral nonspecific interstitial infiltrates indeterminate for covid 19. Coronary artery disease. Electronically Signed: Bryson Rodriguez MD at 21:14 EDT , Service support ,
--- NOTE | 2021-03-06 21:35 | HP.PCM.HOS_ITS ---
HPI - General General Date of Admission: 03/06/21 Date of Service: 03/06/21 Chief Complaint: Dyspnea, cough, worsening. HPI Narrative The patient is a 60 y/o M w/ PMHx: Chronic thrombocytopenia, Chronic COPD, Tobacco use, HTN, HLD, Morbid Obesity, KYLER, diabetes mellitus type II, Bladder CA who presents to the [facility] ED on 03/06/21 with history of 2 days of increasing shortness of breath with significant wheezing and associated cough with clear sputum, rhinorrhea, bilateral ear pain, mild sore throat, subjective chills progressively worsening with recent chemotherapy with significant fatigue and malaise following with onset of the symptoms afterwards. His has not been ill. He notes he is supposed to have upcoming chemotherapy treatment on Thursday. Work-up in the ED included T 99.3, heart rate ranging 56-86, BP 160/62, respiratory rate 19-24, initially 86% on room air with improvement to 94% on 4 L nasal cannula at rest however did have notable increased work of breathing and accessory muscle usage, somewhat improved following serial aerosols but still present, CBC with WBC 6.1, hemoglobin 16.4, platelet 135 with no marked shift, CMP with carbon oxide 34, glucose 141, lactic acid 1.1 unremarkable hepatic profile otherwise, chest x-ray with no acute cardiopulmonary findings, rapid Covid antigen negative, CTPA with mild bilateral nonspecific interstitial infiltrates indeterminate for COVID-19, Covid PCR pending. In the ED patient ministered albuterol, Tylenol, Decadron 6 mg IV x1 and normal saline bolus. [facility] Medical History (Updated 03/06/21 @ 21:[address] Roderick Magdaleno, ) Bladder cancer COPD (chronic obstructive pulmonary disease) Diabetes HTN (hypertension) Obesity KYLER (obstructive sleep apnea) Home Medications albuterol sulfate [Ventolin Hfa (SP)] 1 - 2 puff INHALATION Q4H PRN PRN 05/14/17 [History Last Taken Unknown] aspirin 81 mg PO DAILY 05/14/17 [History Last Taken 02/10/19] carvedilol 25 mg PO BID 05/14/17 [History Last Taken 02/18/19] metformin 1,000 mg PO BIDCM 05/14/17 [History Last Taken Unknown] omega 9-[id number]-wpt-fish oil [Fish Oil] 500 mg PO DAILY 05/14/17 [History Last Taken Unknown] oxybutynin chloride 10 mg PO TID 02/11/19 [History Last Taken 02/18/19] ciprofloxacin HCl 500 mg PO BID #6 tab 02/18/19 [Rx Last Taken Unknown] glimepiride 4 mg PO DAILY 03/06/21 [History Last Taken Unknown] meloxicam 15 mg PO DAILY 03/06/21 [History Last Taken Unknown] tamsulosin 0.4 mg PO DAILY 03/06/21 [History Last Taken Unknown] Allergy/AdvReac Type Severity Reaction Status Date / Time codeine Allergy Other Verified 03/06/21 17:40 Family History (Updated 03/06/21 @ 22:[address] Stephany Heredia MD) Mother Hypertension Thyroid disorder Father Cancer Hx Bladder CA. Surgical History (Updated 03/06/21 @ 21:[address] Stephany Heredia MD) History of bladder surgery History of carpal tunnel surgery History of cystoscopy History of inguinal hernia repair Social History (Updated 03/06/21 @ 22:[address] Stephany Heredia MD) household members: spouse Smoking Status: Current some day smoker tobacco type: cigars how long ago did patient quit smoking: Patient quit 03/04/21, prior 2-3 cigars daily. alcohol intake: never substance use type: does not use ROS ROS Narrative Admission Review of Systems: CONSTITUTIONAL: No weight loss, + fever, chills, weakness or fatigue. HEENT: + Congestion, rhinorrhea, bilateral ear pain, sore throat. Eyes: No visual loss, blurred vision, double vision or yellow sclerae. Ears, Nose, Throat: No hearing loss, sneezing. SKIN: No rash or itching, lesions, wounds. CARDIOVASCULAR: No chest pain, chest pressure or chest discomfort, palpitations, edema, orthopnea, syncopal events. RESPIRATORY: + shortness of breath, cough without marked sputum, wheezing, No hemoptysis. GASTROINTESTINAL: No anorexia, nausea, vomiting or diarrhea, abdominal pain, melena, BRBPR. GENITOURINARY: No dysuria, frequency, urgency or retention. NEUROLOGICAL: No headache, dizziness, syncope, paralysis, ataxia, numbness or tingling in the extremities, focal weakness, change in bowel or bladder control, seizure. MUSCULOSKELETAL:+ muscle, back pain, joint pain or stiffness. HEMATOLOGIC: + anemia, bleeding or bruising. LYMPHATICS: No enlarged nodes. No history of splenectomy. PSYCHIATRIC: No history of depression or anxiety. ENDOCRINOLOGIC: + reports of sweating, cold or heat intolerance. No polyuria or polydipsia. ALLERGIES: No history of asthma, hives, eczema or rhinitis. Vital Signs Vital Signs Vital Signs: 03/06/21 17:34 03/06/21 18:23 03/06/21 18:33 Temperature 99.2 F H 99.3 F H Temperature Source Oral Oral Pulse Rate 86 56 L 56 L Respiratory Rate 19 H 24 H 21 H Respiratory Effort Short of Breath Labored Accessory Muscle Use Respiratory Depth Shallow Respiratory Pattern Tachypnea Blood Pressure 116/62 129/61 H 129/61 H Blood Pressure Mean 80 83 83 Pulse Ox 86 96 94 Oxygen Delivery Method Nasal Cannula Nasal Cannula Nasal Cannula Oxygen Flow Rate (L/min) 4 4 4 Weight Weight: 273 lb 5.971 oz Body Mass Index (BMI) 39.2 Physical Exam Narrative Physical Examination: General: Awake, alert, oriented x 3 and cooperative, seated upright in the ED bed, fatigued, ill, evidence of still ongoing respiratory distress, improved greatly since initial ED presentation as had significant work of breathing, accessory muscle usage and significant hypoxia. Skin: Normal color, normal turgor, no icterus, no cyanosis. HEENT: AT/NC, EOMI, PERRLA, dry MM, no carotid bruits or JVD noted. Lungs: Significantly diminished diffusely, greater bases, occasional soft and expiratory wheeze, increased work of breathing, accessory muscle usage however improved since initial ED presentation, no obvious rhonchi or specific rales noted. Heart: Regular rate and rhythm; no gallop, rub audible. Abdomen: Soft, morbidly obese, NTTP, ND, distant mildly hyperactive BS, no obv ious evidence of HSM; however, habitus makes examination difficult. Extremities: No cyanosis, clubbing, or edema. Neurological: Patient awake, alert, oriented as noted, cognitive function intact; pupils equally reactive to light and accommodation, cranial nerves II- XII grossly normal, moving all 4 extremities, no focal deficits, strength severely global decrease secondary to acute presentation. Psychiatric: Affect appears fatigued, ill-appearing, evidence of respiratory distress although improving, no acute evidence of depressive or anxiety feelings. Results Lab / Micro Data Result Diagrams: 03/06/21 18:45 03/06/21 18:45 Labs: Laboratory Results - last 24 hr 03/06/21 18:45: WBC 6.1, RBC 5.08, Hgb 16.4, Hct 47.7, MCV 93.9, MCH 32.3 H, MCHC 34.4, RDW Std Deviation 44.8 H, RDW Coeff of Dionicio 13.1, Plt Count 135 L, MPV 10.1, Immature Gran % (Auto) 0.200, Neut % (Auto) 72.1 H, Lymph % (Auto) 15.2 L, Wise % (Auto) 10.9 H, Eos % (Auto) 1.3, Baso % (Auto) 0.3, Absolute Neuts (auto) 4.4, Absolute Lymphs (auto) 0.93, Nucleated RBC % 0 03/06/21 18:45: Sodium 137, Potassium 4.2, Chloride 102, Carbon Dioxide 34.0 H, Anion Gap 1 L, BUN 12, Creatinine 0.96, Estim Creat Clear Calc 83.43, Est GFR (MDRD) Af Amer 102, Est GFR (MDRD) Non-Af 84, BUN/Creatinine Ratio 12.4, Glucose 141 H, Calcium 8.9, Total Bilirubin 0.70, AST 16, ALT 13 L, Alkaline Phosphatase 54, Total Protein 7.2, Albumin 3.2, Globulin 4.0, Albumin/Globulin Ratio 0.8 L 03/06/21 18:45: Lactic Acid 1.1 Micro: Microbiology 03/06/21 18:40 Nasal Secretion SARS-CoV-2 Antigen (Rapid) - Final Radiology Impression Chest X-Ray 03/06/21 18:56 IMPRESSION: No acute radiographic abnormalities. Electronically Signed: Matthew Cast MD at 19:11 EDT Tel , Service support , Chest CTA 03/06/21 20:25 IMPRESSION: Mild bilateral nonspecific interstitial infiltrates indeterminate for covid 19. Coronary artery disease. Electronically Signed: Bryson Rodriguez MD at 21:14 EDT , Service support , Assessment & Plan Assessment/Plan (1) Acute respiratory failure with hypoxia: (2) Suspected COVID-19 virus infection: (3) COPD exacerbation: PLAN: The patient is a 60 y/o M w/ PMHx: Chronic thrombocytopenia, Chronic COPD, Tobacco use, HTN, HLD, Morbid Obesity, KYLER, diabetes mellitus type II, Bladder CA who presents to the [facility] ED on 03/06/21 with history of 2 days of increasing shortness of breath with significant wheezing and associated cough with clear sputum, rhinorrhea, bilateral ear pain, mild sore throat, subjective chills progressively worsening with recent chemotherapy with significant fatigue and malaise following with onset of the symptoms afterwards. 1. Acute Hypoxic Respiratory Failure secondary to Acute Bilateral Pneumonia secondary to Suspected Acute Viral Syndrome, COVID-19 (Rapid antigen negative, CTPA with BL infiltrates) and Acute on Chronic COPD Exacerbation: Will admit to [facility] on telemetry, will maintain in COVID precautions pending COVID PCR, will maintain on oxygen with wean as tolerated to room air, PRN albuterol, HOB, IS parameters w/ pending sputum cultures, respiratory viral panel and urine a ntigens, will obtain D-dimer, procalcitonin, CRP, CPK, Ferritin, LDH, trop and BNP, will also overlap with IV Levaquin in case COVID negative and primarily secondary to acute COPD exacerbation, will in the interim continue IV decadron with solumedrol transition if COVID negative, if COVID positive will initiate IV remdesivir. 2. Bladder Cancer: Patient with history of bladder cancers and issues since 2017 with prior TURBT and instillation of anticancer agents as well as several cystoscopies. Recent 02/18/2019 cystoscopy with biopsy and extensive fulguration of the biopsy site on the dome of the bladder per Dr. Mcgarry, discharged at that time on ciprofloxacin regimen which was completed, encouraged continued follow- up with urology, patient with ongoing chemotherapy treatment. 3. Diabetes mellitus type II: Hold oral home regimen, ADA diet, accu checks w/ ISS. 4. Hypertension: Continue home regimen including Coreg with hold parameters, PRN hydralazine. 5. Chronic thrombocytopenia: Likely secondary to chemotherapeutic agents with ongoing bladder cancer treatment, admission platelets 135, baseline appears 1 30-1 40, stable, trend. 6. Morbid Obesity: Weight loss and lifestyle changes encouraged. 7. BPH: We will continue patient home Flomax regimen. 8. Tobacco Abuse: Encouraged cessation, inpatient consultation per RT, NR if desired. 9. KYLER: Supposed to be using device, reports not tolerating well, willing especially given #1 to trial BiPAP nightly. 10. DVT prophylaxis: SCDs, Lovenox. 11. CODE status: Patient does not have healthcare power of assistant attorney general nor living will in place. is present for these discussions. Given acute hypoxic respiratory failure presentation with suspected acute on chronic COPD exacerbation and possible Covid, discussed CODE status at length including difference between FULL code, DNR-CCA and DNR-CC status. Following discussions about the differences in these status, requested Full Code status. Willing to trial BIPAP as noted and airvo if necessary. Advanced Care Planning Face to Face Time: 16 minutes. Charges/Coding Visit Charges Inpatient E&M: 25128 Init Hosp L3 Procedures Hospitalists Procedures: 73729 Advncd Care Plan 30 Min
--- NOTE | 2021-03-06 21:40 | NURSING ---
DR EPSTEIN FOR DR TRAN
[2021-03-06] MEDS: dexAMETHasone 4 MG/ML Vial 6 MG IV (22:05)
--- NOTE | 2021-03-06 22:07 | NURSING ---
PCU WHITE RESP FAILURE, COPD EXAC, POSSIBLE COVID 19
--- NOTE | 2021-03-06 22:59 | PCS.PANDOC ---
PANDEMIC DOCUMENTATION INITIATED: Date: 01/28/2021 Time: 190
--- NOTE | 2021-03-06 23:23 | CPS ---
Patient is not able to tolerate BiPAP at home. Has tried both the nasal and full face mask and still not able to wear. For this reason, patient refused to wear the hospital BIPAP during stay.
[2021-03-06 23:35] LABS: BNP,B-Type NATRIURETIC PEPTIDE 45.5 pg/mL (0-100)
[2021-03-06 23:40] LABS: AST(SGOT) 17 U/L (15-37); Alanine Aminotransfer ALT/SGPT 14 U/L (16-61); Albumin, Serum 3.1 g/dL (3.2-5.0); Alkaline Phosphatase 55 U/L (45-117); Bilirubin, Direct 0.24 mg/dL (0.00-0.30); Ferritin 227 ng/mL (26-388); Globulin 3.9 g/dL (2.2-4.2); LDH 176 U/L (87-241); Magnesium 1.8 mg/dL (1.6-2.6)
[2021-03-06] MEDS: Carvedilol 25 MG Tablet PO (23:51)
[2021-03-06] MEDS: Enoxaparin 40 MG/0.4 ML Syringe SC (23:51)
[2021-03-06] MEDS: Famotidine 20 MG Tablet PO (23:51)
[2021-03-06 23:52] LABS: D-Dimer Quantitative (DVT/PE) 0.42 FEU/ug/m (0.27-0.49)
[2021-03-07] VITALS (13 sets, daily range): BP systolic 133–152; BP diastolic 64–71; PULSE 39–88; RESP 18–20; TEMP 36.4–36.9; O2SAT 92–95
[2021-03-07] MEDS: Insulin Lispro 100 UNIT/ML INSULN.PEN SC ×5 (00:03→21:41)
[2021-03-07 00:04] LABS: Procalcitonin 0.08 ng/mL (0.00-0.09)
[2021-03-07] MEDS: Oxybutynin 5 MG Tablet 10 MG PO ×4 (00:10→21:47)
[2021-03-07 00:27] LABS: Bedside Glucose 150 mg/dL (70-110)
[2021-03-07 06:56] LABS: Bedside Glucose 348 mg/dL (70-110)
[2021-03-07] MEDS: Ipratropium/Albuterol Sulfate 3 ML AMPUL.NEB INHALATION ×2 (07:48→19:24)
[2021-03-07 07:58] LABS: Absolute Lymphocyte Count 0.44 X10^3/uL (0.83-4.51); Absolute Neutrophil Count 3.7 X10^3/uL (2.0-7.7); Basophil# 0.01 X10^3/uL; Basophil% 0.2 % (0-1); Hematocrit 47.4 % (40-54); Hemoglobin 15.7 g/dL (13.0-16.5); Lymphocyte # 0.44 X10^3/ul (0.83-4.51); Lymphocyte % 10.3 % (19-41); Mean Corp Hgb Conc 33.1 g/dL (32-36); Mean Corpuscular Hgb 31.7 pg (27.0-32.0); Mean Corpuscular Volume 95.6 fL (80-94); Mean Platelet Vol. 10.4 fl (6.2-12.0); Monocyte# 0.15 X10^3/uL; Monocyte% 3.5 % (0-10); NRBC Flagged by Analyzer 0 % (0-5); Neutrophil # 3.67 X10^3/uL (2.7-7.7); Neutrophil % 85.5 % (47-70); POSITIVE DIFFERENTIAL YES; Platelet Count 124 K/mm3 (150-450); RBC Distribution Width CV 13.2 % (11.6-14.6); RBC Distribution Width SD 46.7 fl (35.1-43.9); Red Blood Count 4.96 M/mm3 (4.6-6.2); White Blood Count 4.3 K/mm3 (4.4-11.0)
[2021-03-07 07:59] LABS: Differential Indicated SCAN CRITERIA MET
[2021-03-07 08:05] LABS: ALB/GLOB Ratio 0.7 RATIO (0.9-2.4); AST(SGOT) 16 U/L (15-37); Alanine Aminotransfer ALT/SGPT 14 U/L (16-61); Albumin, Serum 2.9 g/dL (3.2-5.0); Alkaline Phosphatase 56 U/L (45-117); Anion Gap 0 (5-15); BUN 18 mg/dL (7-18); BUN/Creat Ratio 16.7 RATIO (10-20); Calcium,Total 8.6 mg/dL (8.5-10.1); Chloride 103 mmol/L (98-107); Creatinine, Serum 1.08 mg/dL (0.70-1.30); EST Glomerular Filtration Rate 74 mL/min (>60); Est Glom Filt Rate - Afr Amer 89 mL/min (>60); Estimated Creatinine Clearance 74.16 ml/min; Glucose 371 mg/dL (74-106); Potassium 4.9 mmol/L (3.5-5.1); Protein, Total 6.9 g/dL (6.4-8.2); Sodium Level 135 mmol/L (136-145)
[2021-03-07] MEDS: Aspirin E.C. 81 MG Tablet PO (10:48)
[2021-03-07] MEDS: Famotidine 20 MG Tablet PO ×2 (10:49→21:47)
--- NOTE | 2021-03-07 11:40 | CASEMGMT ---
RN CM SOFTWARE ENGINEER DEVELOPER CM to room to meet with patient for initial transition planning/care coordination assessment. ANNI LARIOS introduced self and role at [facility]. Pt voices understanding and consents to assessment at this time. Pt sitting up in chair in room in no distress at this time. @ bedside, visiting. Pt is A/O at this time and answers all questions appropriately. Care providers, pharmacy, and demographics verified/updated at this time. PCP: Dr Liang Specialists: Dr Guy-oncology @ [facility]/ [place] Preferred Pharmacy: [facility] Retail Insurance: [employer] Prescription Benefit: Yes Living Will/HPOA: States does not have LW or HCPOA . Interested in more information but states does not want to talk with SW at this time to complete paperwork. Provided information on advanced directives, given AD packet, and given Social Service rac card with number to call if chooses in the future to utilize [facility] social work for advanced directive completion. LNOK: , Ness. 4 adult sons. Living Arrangements: Lives w/his . 23-yr-old son and 16-yr old that is guardian of lives w/them. Pt is independent w/ADL's. manages most home tasks. They live in a ranch-style home w/basement. 3 steps to enter w/rails. Transportation: Pt states drives self and states no transportation concerns at this time. also drives. DME: States has the following DME: functioning glucometer w/supplies. Pt had a BIPAP about 6-10 yrs ago, but returned it d/t could not tolerate it. Does not have home O2 and does not have a nebulizer. Pt may need Home O2 @ d/c. Provided w/list of local DME companies for pt to choose from and states [employer]. Pt/ state no need for further DME at this time. HHC/SNF: No hx of either. Denies need for HHC and no need identified. Pt wishes to return home and states has no concerns with going home at time of discharge. CM to follow for home oxygen needs and any further discharge planning/needs. Pt voices no further concerns/needs at this time. Advised pt to ask for CM if any further questions/concerns/needs arise. Voices understanding. PLAN: Home. Follow for any O2 needs @ d/c. El ESTRADA RN, CM
[2021-03-07 13:05] LABS: Bedside Glucose 273 mg/dL (70-110)
[2021-03-07] MEDS: Enoxaparin 40 MG/0.4 ML Syringe SC ×2 (13:56→21:48)
[2021-03-07] MEDS: levoFLOXacin IV 750 MG/150 ML BAG 100 MG IV (13:56)
[2021-03-07] MEDS: 0.9% Saline Lock 10 ML Syringe IV ×3 (13:57→21:48)
--- NOTE | 2021-03-07 16:44 | PCM.PN.HOSP ---
Subjective Subjective Patient was seen and examined. He is on 4 L of oxygen. He has significant wheezes. Denies any fever or chills. COVID-19 PCR was negative. Respiratory panel has rhinovirus. Objective Data Objective Data Vital Signs: Vital Signs Temp Pulse Resp BP Pulse Ox 97.6 F L 53 L 20 H 140/71 H 95 03/07/21 10:31 03/07/21 12:00 03/07/21 10:31 03/07/21 10:31 03/07/21 10:31 Oxygen Flow Rate (L/min) 4 Oxygen Delivery Method Nasal Cannula Weight: 127.5 kg Body Mass Index (BMI) 40.3 Intake & Output: Intake and Output for Last 24 Hours 03/05/21 03/06/21 03/07/21 23:59 23:59 23:59 Intake Total 500 / 500 150 / 150 Balance 500 / 500 150 / 150 Lab / Micro Data Result Diagrams: 03/07/21 07:32 03/07/21 07:32 Labs: Laboratory Results - last 24 hr 03/06/21 18:25: Magnesium 1.8, Ferritin 227, Total Bilirubin 0.70, Direct Bilirubin 0.24, AST 17, ALT 14 L, Alkaline Phosphatase 55, Lactate Dehydrogenase 176, C-React Prot Ext Range 43.40 H, Total Protein 7.0, Albumin 3.1 L, Globulin 3.9 03/06/21 18:25: B-Natriuretic Peptide 45.5 03/06/21 18:45: WBC 6.1, RBC 5.08, Hgb 16.4, Hct 47.7, MCV 93.9, MCH 32.3 H, MCHC 34.4, RDW Std Deviation 44.8 H, RDW Coeff of Dionicio 13.1, Plt Count 135 L, MPV 10.1, Immature Gran % (Auto) 0.200, Neut % (Auto) 72.1 H, Lymph % (Auto) 15.2 L, Phelps % (Auto) 10.9 H, Eos % (Auto) 1.3, Baso % (Auto) 0.3, Absolute Neuts (auto) 4.4, Absolute Lymphs (auto) 0.93, Nucleated RBC % 0 03/06/21 18:45: Sodium 137, Potassium 4.2, Chloride 102, Carbon Dioxide 34.0 H, Anion Gap 1 L, BUN 12, Creatinine 0.96, Estim Creat Clear Calc 83.43, Est GFR (MDRD) Af Amer 102, Est GFR (MDRD) Non-Af 84, BUN/Creatinine Ratio 12.4, Glucose 141 H, Calcium 8.9, Total Bilirubin 0.70, AST 16, ALT 13 L, Alkaline Phosphatase 54, Total Protein 7.2, Albumin 3.2, Globulin 4.0, Albumin/Globulin Ratio 0.8 L 03/06/21 18:45: Lactic Acid 1.1 03/06/21 20:38: COVID-19 (LAURA) Not Detected 03/06/21 23:28: D-Dimer Quant (PE/DVT) 0.42 03/06/21 23:28: Procalcitonin 0.08 03/07/21 00:03: POC Glucose 150 H 03/07/21 05:52: WBC Cancelled, Corrected WBC Cancelled, RBC Cancelled, Hgb Cancelled, Hct Cancelled, MCV Cancelled, MCH Cancelled, MCHC Cancelled, RDW Std Deviation Cancelled, RDW Coeff of Dionicio Cancelled, Plt Count Cancelled, MPV Cancelled, Immature Gran % (Auto) Cancelled, Neut % (Auto) Cancelled, Lymph % (Auto) Cancelled, Phelps % (Auto) Cancelled, Eos % (Auto) Cancelled, Baso % (Auto) Cancelled, Absolute Neuts (auto) Cancelled, Absolute Lymphs (auto) Cancelled, Total Counted Cancelled, Neutrophils % (Manual) Cancelled, Band Neutrophils % Cancelled, Lymphocytes % (Manual) Cancelled, Monocytes % (Manual) Cancelled, Eosinophils % (Manual) Cancelled, Basophils % (Manual) Cancelled, Metamyelocytes % Cancelled, Myelocytes % Cancelled, Promyelocytes % Cancelled, Blast Cells % Cancelled, Plasma Cell % (Manual) Cancelled, Other Cells % Cancelled, Nucleated RBC % Cancelled, Nucleated RBCs/100 WBC Cancelled, Differential Comment Cancelled, Diff Path Review Cancelled, Hypersegmented Neuts Cancelled, Atypical Lymphocytes Cancelled, Reactive Lymphocytes Cancelled, Smudge Cells Cancelled, Toxic Granulation Cancelled, Toxic Vacuolation Cancelled, Dohle Bodies Cancelled, Denise Rods Cancelled, Platelet Estimate Cancelled, Plt Morphology Comment Cancelled, RBC Morphology Cancelled, Polychromasia Cancelled, Hypochromasia Cancelled, Poikilocytosis Cancelled, Basophilic Stippling Cancelled, Anisocytosis Cancelled, Microcytosis Cancelled, Macrocytosis Cancelled, Spherocytes Cancelled, Sickle Cells Cancelled, Target Cells Cancelled, Tear Drop Cells Cancelled, Ovalocytes Cancelled, Stomatocytes Cancelled, [place] Bodies Cancelled, Boni Cells Cancelled, Bite Cells Cancelled, Crenated Cell Cancelled, Acanthocytes (Spur) Cancelled, Rouleaux Cancelled, Schistocytes Cancelled 03/07/21 05:52: Sodium Cancelled, Potassium Cancelled, Chloride Cancelled, Carbon Dioxide Cancelled, Anion Gap Cancelled, BUN Cancelled, Creatinine Cancelled, Estim Creat Clear Calc Cancelled, Est GFR (MDRD) Af Amer Cancelled, Est GFR (MDRD) Non-Af Cancelled, BUN/Creatinine Ratio Cancelled, Glucose Cancelled, Calcium Cancelled, Total Bilirubin Cancelled, AST Cancelled, ALT Cancelled, Alkaline Phosphatase Cancelled, Total Protein Cancelled, Albumin Cancelled, Globulin Cancelled, Albumin/Globulin Ratio Cancelled 03/07/21 06:43: POC Glucose 348 H 03/07/21 07:32: Sodium 135 L, Potassium 4.9, Chloride 103, Carbon Dioxide 32.0, Anion Gap 0 L, BUN 18, Creatinine 1.08, Estim Creat Clear Calc 74.16, Est GFR (MDRD) Af Amer 89, Est GFR (MDRD) Non-Af 74, BUN/Creatinine Ratio 16.7, Glucose 371 H, Calcium 8.6, Total Bilirubin 0.50, AST 16, ALT 14 L, Alkaline Phosphatase 56, Total Protein 6.9, Albumin 2.9 L, Globulin 4.0, Albumin/Globulin Ratio 0.7 L 03/07/21 07:32: WBC 4.3 L, RBC 4.96, Hgb 15.7, Hct 47.4, MCV 95.6 H, MCH 31.7, MCHC 33.1, RDW Std Deviation 46.7 H, RDW Coeff of Dionicio 13.2, Plt Count 124 L, MPV 10.4, Immature Gran % (Auto) 0.500, Neut % (Auto) 85.5 H, Lymph % (Auto) 10.3 L, Phelps % (Auto) 3.5, Eos % (Auto) 0.0, Baso % (Auto) 0.2, Absolute Neuts (auto) 3.7, Absolute Lymphs (auto) 0.44 L, Nucleated RBC % 0, Diff Path Review October03/07/21 13:01: POC Glucose 273 H Micro: Microbiology 03/07/21 07:24 Urine, Random Streptococcus pneumoniae Antigen (M - Final 03/07/21 07:24 Urine, Random Legionella Antigen - Final 03/06/21 23:10 Mucosa - Nasopharyngeal Respiratory Panel (PCR) - Final Rhinovirus 03/06/21 18:40 Nasal Secretion SARS-CoV-2 Antigen (Rapid) - Final Radiography Diagnostic Testing: Radiology Impression Chest X-Ray 03/06/21 18:56 IMPRESSION: No acute radiographic abnormalities. Electronically Signed: Matthew Cast MD at 19:11 EDT Tel , Service support , Chest CTA 03/06/21 20:25 IMPRESSION: Mild bilateral nonspecific interstitial infiltrates indeterminate for covid 19. Coronary artery disease. Electronically Signed: Bryson Rodriguez MD at 21:14 EDT , Service support , Physical Exam Narrative Physical exam: General: Alert, Oriented x3, Cooperative, in mild respiratory distress, on 4 L of oxygen HEENT: Atraumatic Oral: Moist Mucosa Neck: Supple Lungs: Clear to auscultation Cardiovascular: HS I+II, regular, no murmurs Abdomen: Bowel Sounds Present, Soft, Non Tender Extremities: No edema Assessment & Plan Assessment/Plan (1) Acute respiratory failure with hypoxia: (2) Suspected COVID-19 virus infection: (3) COPD exacerbation: PLAN: 1. Acute Hypoxic Respiratory Failure secondary to acute rhinovirus COPD exacerbation Acute pneumonia ruled out Acute COVID-19 pneumonia/infection ruled out We will continue on IV Solu-Medrol, breathing treatments, IV Levaquin 2. Type II DM, blood sugars are uncontrolled Will resume glimepiride and Metformin Continue blood glucose checks and insulin sliding scale 3. Bladder Cancer, follows with urology 4. Rest of chronic medical conditions including hypertension, chronic thrombocytopenia, morbid obesity, BPH, nicotine dependence, KYLER remained stable Charges/Coding Visit Charges Inpatient E&M: 11748 Subs Hosp L2
[2021-03-07] MEDS: metFORMIN HCl 1,000 MG Tablet 1000 MG PO (18:09)
[2021-03-07 19:56] LABS: Bedside Glucose 242 mg/dL (70-110)
[2021-03-07 23:36] LABS: Bedside Glucose 307 mg/dL (70-110)
[2021-03-08] VITALS (16 sets, daily range): BP systolic 140–152; BP diastolic 64–73; PULSE 53–92; RESP 14–20; TEMP 36.5–37.4; O2SAT 93–95
[2021-03-08] MEDS: Ipratropium/Albuterol Sulfate 3 ML AMPUL.NEB INHALATION ×5 (00:01→19:36)
--- NOTE | 2021-03-08 01:48 | CPS ---
Pt is unable to wear bipap, has tried to wear in the past but is closterphobiac. Bipap is not set up.
[2021-03-08] MEDS: Oxybutynin 5 MG Tablet 10 MG PO ×3 (06:34→20:53)
[2021-03-08] MEDS: Insulin Lispro 100 UNIT/ML INSULN.PEN SC ×4 (06:44→20:49)
[2021-03-08 06:50] LABS: Bedside Glucose 298 mg/dL (70-110)
[2021-03-08] MEDS: levoFLOXacin IV 750 MG/150 ML BAG 100 MG IV (08:57)
[2021-03-08] MEDS: metFORMIN HCl 1,000 MG Tablet 1000 MG PO ×2 (08:57→16:10)
[2021-03-08] MEDS: Glimepiride 4 MG Tablet PO (08:57)
[2021-03-08 09:01] LABS: Absolute Lymphocyte Count 0.61 X10^3/uL (0.83-4.51); Absolute Neutrophil Count 6.1 X10^3/uL (2.0-7.7); Hematocrit 47.3 % (40-54); Hemoglobin 15.7 g/dL (13.0-16.5); Lymphocyte # 0.61 X10^3/ul (0.83-4.51); Lymphocyte % 8.8 % (19-41); Mean Corp Hgb Conc 33.2 g/dL (32-36); Mean Corpuscular Volume 93.5 fL (80-94); Mean Platelet Vol. 10.7 fl (6.2-12.0); Monocyte% 2.9 % (0-10); NRBC Flagged by Analyzer 0 % (0-5); Neutrophil # 6.09 X10^3/uL (2.7-7.7); Neutrophil % 87.9 % (47-70); Platelet Count 146 K/mm3 (150-450); RBC Distribution Width SD 44.6 fl (35.1-43.9); Red Blood Count 5.06 M/mm3 (4.6-6.2); White Blood Count 6.9 K/mm3 (4.4-11.0)
[2021-03-08 09:31] LABS: ALB/GLOB Ratio 0.7 RATIO (0.9-2.4); AST(SGOT) 13 U/L (15-37); Alanine Aminotransfer ALT/SGPT 15 U/L (16-61); Albumin, Serum 3.1 g/dL (3.2-5.0); Alkaline Phosphatase 56 U/L (45-117); Anion Gap 3 (5-15); BUN 18 mg/dL (7-18); BUN/Creat Ratio 16.1 RATIO (10-20); Chloride 100 mmol/L (98-107); Creatinine, Serum 1.12 mg/dL (0.70-1.30); EST Glomerular Filtration Rate 71 mL/min (>60); Est Glom Filt Rate - Afr Amer 86 mL/min (>60); Estimated Creatinine Clearance 71.52 ml/min; Globulin 4.3 g/dL (2.2-4.2); Glucose 305 mg/dL (74-106); Potassium 4.7 mmol/L (3.5-5.1); Protein, Total 7.4 g/dL (6.4-8.2); Sodium Level 136 mmol/L (136-145)
[2021-03-08 09:38] LABS: Hemoglobin A1c 7.7 % (3.8-5.6)
[2021-03-08] MEDS: Famotidine 20 MG Tablet PO ×2 (10:03→20:48)
[2021-03-08] MEDS: Enoxaparin 40 MG/0.4 ML Syringe SC ×2 (10:03→20:48)
[2021-03-08] MEDS: Aspirin E.C. 81 MG Tablet PO (10:03)
[2021-03-08 11:35] LABS: Bedside Glucose 280 mg/dL (70-110)
[2021-03-08 13:20] LABS: Pathologist Review Reviewed
--- NOTE | 2021-03-08 14:52 | NURSING ---
Read and reviewed SN documentation. Discussed plan of care.
--- NOTE | 2021-03-08 14:58 | PCM.PN.HOSP ---
Subjective Subjective Patient was seen and examined. He is still wheezy. No acute events overnight. Remains on 2 L of oxygen. Blood sugars uncontrolled. Objective Data Objective Data Vital Signs: Vital Signs Temp Pulse Resp BP Pulse Ox 97.7 F L 55 L 18 149/67 H 95 03/08/21 13:48 03/08/21 13:48 03/08/21 13:48 03/08/21 13:48 03/08/21 13:48 Oxygen Flow Rate (L/min) 2 Oxygen Delivery Method Nasal Cannula Weight: 127.3 kg Body Mass Index (BMI) 40.3 Intake & Output: Intake and Output for Last 24 Hours 03/06/21 03/07/21 03/08/21 23:59 23:59 23:59 Intake Total 500 / 500 1350 / 1350 950 / 950 Balance 500 / 500 1350 / 1350 950 / 950 Lab / Micro Data Result Diagrams: 03/08/21 08:45 03/08/21 08:45 Labs: Laboratory Results - last 24 hr 03/07/21 07:32: Diff Path Review Reviewed 03/07/21 18:02: POC Glucose 242 H 03/07/21 21:38: POC Glucose 307 H 03/08/21 06:43: POC Glucose 298 H 03/08/21 08:45: WBC 6.9, RBC 5.06, Hgb 15.7, Hct 47.3, MCV 93.5, MCH 31.0, MCHC 33.2, RDW Std Deviation 44.6 H, RDW Coeff of Dionicio 13.0, Plt Count 146 L, MPV 10.7, Immature Gran % (Auto) 0.400, Neut % (Auto) 87.9 H, Lymph % (Auto) 8.8 L, [place] % (Auto) 2.9, Eos % (Auto) 0.0, Baso % (Auto) 0.0, Absolute Neuts (auto) 6.1, Absolute Lymphs (auto) 0.61 L, Nucleated RBC % 0 03/08/21 08:45: Hemoglobin A1c 7.7 H 03/08/21 08:45: Sodium 136, Potassium 4.7, Chloride 100, Carbon Dioxide 33.0 H, Anion Gap 3 L, BUN 18, Creatinine 1.12, Estim Creat Clear Calc 71.52, Est GFR (MDRD) Af Amer 86, Est GFR (MDRD) Non-Af 71, BUN/Creatinine Ratio 16.1, Glucose 305 H, Calcium 9.0, Total Bilirubin 0.40, AST 13 L, ALT 15 L, Alkaline Phosphatase 56, Total Protein 7.4, Albumin 3.1 L, Globulin 4.3 H, Albumin/Globulin Ratio 0.7 L 03/08/21 11:13: POC Glucose 280 H Micro: Microbiology 03/07/21 21:20 Sputum, Expectorated/Coughed Gram Stain - Final 03/07/21 07:24 Urine, Random Streptococcus pneumoniae Antigen (M - Final 03/07/21 07:24 Urine, Random Legionella Antigen - Final 03/06/21 23:10 Mucosa - Nasopharyngeal Respiratory Panel (PCR) - Final Rhinovirus 03/06/21 18:40 Nasal Secretion SARS-CoV-2 Antigen (Rapid) - Final Physical Exam Narrative Physical exam: General: Alert, Oriented x3, Cooperative, in mild respiratory distress, on 2L of oxygen HEENT: Atraumatic Oral: Moist Mucosa Neck: Supple Lungs: Diminished auscultation, wheezes ++ Cardiovascular: HS I+II, regular, no murmurs Abdomen: Bowel Sounds Present, Soft, Non Tender Extremities: Bilateral trace leg edema Assessment & Plan Assessment/Plan (1) Acute respiratory failure with hypoxia: (2) Suspected COVID-19 virus infection: (3) COPD exacerbation: PLAN: 1. Acute Hypoxic Respiratory Failure secondary to acute rhinovirus COPD exacerbation Currently on 2 L of oxygen Acute pneumonia ruled out Acute COVID-19 pneumonia/infection ruled out Continue on IV Solu-Medrol, breathing treatments, IV Levaquin 2. Type II DM, blood sugars are uncontrolled Continue glimepiride and Metformin Continue blood glucose checks and insulin sliding scale 3. Bladder Cancer, follows with urology 4. Rest of chronic medical conditions including hypertension, chronic thrombocytopenia, morbid obesity, BPH, nicotine dependence, KYLER remained stable Charges/Coding Visit Charges Inpatient E&M: 42845 Subs Hosp L2
[2021-03-08] MEDS: amLODIPine 5 MG Tablet PO (16:03)
[2021-03-08 16:35] LABS: Bedside Glucose 318 mg/dL (70-110)
[2021-03-08] MEDS: MELATONIN 3 MG TABLET PO (20:48)
[2021-03-08] MEDS: 0.9% Saline Lock 10 ML Syringe IV (20:48)
[2021-03-08 21:06] LABS: Bedside Glucose 257 mg/dL (70-110)
[2021-03-09 03:10] VITALS: BP 144/80; PULSE 60; RESP 18; TEMP 36.6; O2SAT 94
[2021-03-09 03:14] VITALS: PULSE 52
[2021-03-09] MEDS: Oxybutynin 5 MG Tablet 10 MG PO ×2 (06:25→13:22)
[2021-03-09] MEDS: 0.9% Saline Lock 10 ML Syringe IV ×2 (06:26→13:22)
[2021-03-09] MEDS: Insulin Lispro 100 UNIT/ML INSULN.PEN SC ×2 (06:28→11:11)
[2021-03-09 06:50] LABS: Bedside Glucose 290 mg/dL (70-110)
[2021-03-09] MEDS: Ipratropium/Albuterol Sulfate 3 ML AMPUL.NEB INHALATION (06:56)
[2021-03-09 06:57] VITALS: PULSE 50; RESP 19; O2SAT 93
[2021-03-09 07:00] VITALS: PULSE 48
[2021-03-09 09:10] VITALS: BP 156/79; PULSE 55; RESP 18; TEMP 36.5; O2SAT 93
[2021-03-09] MEDS: Glimepiride 4 MG Tablet PO (09:19)
[2021-03-09] MEDS: Aspirin E.C. 81 MG Tablet PO (09:19)
[2021-03-09] MEDS: levoFLOXacin IV 750 MG/150 ML BAG 100 MG IV (09:19)
[2021-03-09] MEDS: metFORMIN HCl 1,000 MG Tablet 1000 MG PO (09:19)
[2021-03-09] MEDS: Enoxaparin 40 MG/0.4 ML Syringe SC (09:19)
[2021-03-09] MEDS: Famotidine 20 MG Tablet PO (09:19)
[2021-03-09] MEDS: amLODIPine 5 MG Tablet PO (09:19)
[2021-03-09 11:40] LABS: Bedside Glucose 341 mg/dL (70-110)
--- NOTE | 2021-03-09 12:46 | DCINST_ITS ---
Discharge Instructions Diet Discharge Diet: 2000 Calorie Control Diet and 2000 mg Sodium Diet Activity Discharge Activity: Return to Normal Activity Follow Up Care Test Results: Test results from this visit will be discussed in further detail at your follow-up appointment, if applicable. Discharge Plan Admission Admit Date/Time: 03/06/21 21:38 Primary Reason for Your Visit: Acute COPD exacerbation Attending Provider: Ce Medrano Primary Care Provider: Gasper Liang Instructions Additional Instructions / Restrictions: Take note of changes to your medications. Complete your prednisone prescription. Continue to monitor your oxygen. Use your oxygen all the time. Do not go near fires whilst on oxygen. Follow-up with your primary care and instrument assembler within 2 weeks. Continue to monitor your blood glucose closely. Let your primary care doctor know if your blood sugars are persistently more than 200 Discharge Orders/Prescriptions Prescriptions: New amlodipine 5 mg Tablet 5 mg PO DAILY 30 Days Qty: 30 RF: 0 glimepiride 4 mg Tablet 4 mg PO BID 30 Days Qty: 60 RF: 0 levofloxacin 500 mg tablet 500 mg PO DAILY 3 Days Qty: 3 RF: 0 prednisone 20 mg tablet 40 mg PO DAILY 5 Days Qty: 10 RF: 0 Continued aspirin 81 MG tablet,delayed release (DR/EC) 81 mg PO DAILY RF: 0 metformin 1,000 MG tablet 1,000 mg PO BIDCM RF: 0 albuterol sulfate [Ventolin HFA] 1 INHALER inhaler 1 - 2 puff inhalation Q4H PRN PRN (Reason: Asthma) RF: 0 Fish Oil 500 MG capsule,delayed release(DR/EC) 500 mg PO DAILY RF: 0 oxybutynin chloride 10 MG tablet extended release 24hr 10 mg PO TID RF: 0 Discontinued carvedilol 25 MG tablet 25 mg PO BID RF: 0 glimepiride 4 mg tablet 4 mg PO DAILY RF: 0 Referrals / Follow Up: Gasper Liang MD [Primary Care Provider] - Within 2 Weeks Micah Love MD [STAFF PHYSICIAN] - Within 2 Weeks Disposition Disposition (needs filled in before D/C Order can be placed): Home, Self Care
--- NOTE | 2021-03-09 12:52 | PCM.DC.SUM ---
Providers Date of Admission: 03/06/21 Date of Discharge: 03/09/21 Primary Care Physician: Dr. Gasper Liang MD Reason For Visit: AUTE HYPOXIC RESPIRATORY FAILURE, COPD EXAC, Diagnosis Discharge Diagnosis (1) Acute respiratory failure with hypoxia: Status: Acute Code(s): J96.01 - Acute respiratory failure with hypoxia (2) Suspected COVID-19 virus infection: Status: Resolved Code(s): Z20.822 - Contact with and (suspected) exposure to COVID-19 (3) COPD exacerbation: Status: Acute Code(s): J44.1 - Chronic obstructive pulmonary disease with (acute) exacerbation Medications at Discharge Home Medications Fish Oil 500 mg PO DAILY 05/14/17 albuterol sulfate [Ventolin HFA] 1 - 2 puff INHALATION Q4H PRN PRN 05/14/17 aspirin 81 mg PO DAILY 05/14/17 metformin 1,000 mg PO BIDCM 05/14/17 oxybutynin chloride 10 mg PO TID 02/11/19 albuterol sulfate 2.5 mg INHALATION Q2H PRN PRN 30 Days #100 ml 03/09/21 amlodipine 5 mg PO DAILY 30 Days #30 tab 03/09/21 glimepiride 4 mg PO BID 30 Days #60 tab 03/09/21 levofloxacin 500 mg PO DAILY 3 Days #3 tab 03/09/21 prednisone 40 mg PO DAILY 5 Days #10 tab 03/09/21 Hospital Course Operations None Procedures None Summary of Care Provided Minutes Spent on Discharge: 45 Hospital Course: 60 y/o male past medical history of COPD, nicotine use, type II DM, who comes with progressive shortness of breath. Patient was managed as acute COPD exacerbation secondary to acute rhinovirus infection. Patient initially was suspected to have acute COVID-19 infection. This was ruled out with negative PCR. Patient was managed on IV steroids, breathing treatments. His blood sugars were uncontrolled secondary to steroids. Patient was discharged in a short course of prednisone. He was recommended that he follows up with pulmonology within 2 weeks. He was asked to monitor his blood glucose closely. He was counseled to stop smoking. He was to follow-up with his primary care doctor within 1 to 2 weeks. Physical Exam Narrative Physical exam: General: Alert, Oriented x3, Cooperative, comfortable, on 2L of oxygen HEENT: Atraumatic Oral: Moist Mucosa Neck: Supple Lungs: Diminished auscultation Cardiovascular: HS I+II, regular, no murmurs Abdomen: Bowel Sounds Present, Soft, Non Tender Extremities: Bilateral trace leg edema Weight / BMI Weight Weight: 126.8 kg Body Mass Index (BMI) 40.3 ABG / Lab / Microbiology Data Result Diagrams: 03/08/21 08:45 03/08/21 08:45 Laboratory: Laboratory Results - last 24 hr 03/07/21 07:32: Diff Path Review Reviewed 03/08/21 16:07: POC Glucose 318 H 03/08/21 20:46: POC Glucose 257 H 03/09/21 06:27: POC Glucose 290 H 03/09/21 11:10: POC Glucose 341 H Microbiology: Microbiology 03/07/21 21:20 Sputum, Expectorated/Coughed Gram Stain - Final 03/07/21 21:20 Sputum, Expectorated/Coughed Respiratory Culture - Preliminary Appears to be normal respiratory jaqueline. Further studies to follow. 03/06/21 19:56 Blood Culture (Wb) - Anticubital Left Blood Culture - Preliminary No growth in 48 hours. 03/06/21 18:45 Blood Culture (Wb) - Anticubital Left Blood Culture - Preliminary No growth in 48 hours. 03/07/21 07:24 Urine, Random Streptococcus pneumoniae Antigen (M - Final 03/07/21 07:24 Urine, Random Legionella Antigen - Final 03/06/21 23:10 Mucosa - Nasopharyngeal Respiratory Panel (PCR) - Final Rhinovirus 03/06/21 18:40 Nasal Secretion SARS-CoV-2 Antigen (Rapid) - Final D/C Instructions Discharge Diet: 2000 Calorie Control Diet and 2000 mg Sodium Diet Meaningful Use Info Meaningful Use Diagnoses (Choose all that apply): None applicable Discharge Plan Admission Admit Date/Time: 03/06/21 21:38 Primary Reason for Your Visit: Acute COPD exacerbation Attending Provider: Ce Medrano Primary Care Provider: Gasper Liang Instructions Additional Instructions / Restrictions: Take note of changes to your medications. Complete your prednisone prescription. Continue to monitor your oxygen. Use your oxygen all the time. Do not go near fires whilst on oxygen. Follow-up with your primary care and resident care provider within 2 weeks. Continue to monitor your blood glucose closely. Let your primary care doctor know if your blood sugars are persistently more than 200 Discharge Orders/Prescriptions Prescriptions: New amlodipine 5 mg Tablet 5 mg PO DAILY 30 Days Qty: 30 RF: 0 glimepiride 4 mg Tablet 4 mg PO BID 30 Days Qty: 60 RF: 0 levofloxacin 500 mg tablet 500 mg PO DAILY 3 Days Qty: 3 RF: 0 prednisone 20 mg tablet 40 mg PO DAILY 5 Days Qty: 10 RF: 0 albuterol sulfate 2.5 mg /3 mL (0.083 %) Solution For Nebulization 2.5 mg inhalation Q2H PRN PRN (Reason: Dyspnea, wheezing) 30 Days Qty: 100 RF: 0 Continued aspirin 81 MG tablet,delayed release (DR/EC) 81 mg PO DAILY RF: 0 metformin 1,000 MG tablet 1,000 mg PO BIDCM RF: 0 albuterol sulfate [Ventolin HFA] 1 INHALER inhaler 1 - 2 puff inhalation Q4H PRN PRN (Reason: Asthma) RF: 0 Fish Oil 500 MG capsule,delayed release(DR/EC) 500 mg PO DAILY RF: 0 oxybutynin chloride 10 MG tablet extended release 24hr 10 mg PO TID RF: 0 Discontinued carvedilol 25 MG tablet 25 mg PO BID RF: 0 glimepiride 4 mg tablet 4 mg PO DAILY RF: 0 Referrals / Follow Up: Micah Love MD [STAFF PHYSICIAN] - Within 2 Weeks Gasper Liang MD [Primary Care Provider] - Within 2 Weeks Disposition Disposition (needs filled in before D/C Order can be placed): Home, Self Care Charges/Coding Visit Charges Inpatient E&M: 78340 Disch Hosp
[2021-03-09 13:21] VITALS: O2SAT 88; O2SAT 91; O2SAT 93
--- NOTE | 2021-03-11 15:24 | CASEMGMT ---
ANNI LARIOS Discharge F/U Phone Call LACE: 11 Strata: 3 Discharge date: 03/09/21 Call date: 03/11/21 Call time: [id number] Admission dx: Acute hypoxic resp failure, COPD Pt states has been 'doing alright' since discharge. Pt states no questions regarding discharge instructions/medications. Pt states has f/u tomorrow with Dr. Liang. Pt states home oxygen got set up and states no concerns. Pt states 'Everything was fine, they took too good of care of me. I have no complaints.' Pt states no further questions/concerns/needs. [place] ANNI LARIOS
== END 2021-03-09 14:47 | disposition home or self-care (01) | DRG 189 ==
LOC: ED 21:54 → PCU 03-07 02:14
PROVIDERS: Admitting Provider Family Medicine; Emergency Provider Emergency Medicine; PCP Family Medicine; Visit Provider Internal Medicine
DX: J96.01 Acute respiratory failure with hypoxia (principal); J44.1 Chronic obstructive pulmonary disease with (acute) exacerbation; Z68.41 Body mass index [BMI] 40.0-44.9, adult; B97.89 Other viral agents as the cause of diseases classified elsewhere; I10 Essential (primary) hypertension; G47.33 Obstructive sleep apnea (adult) (pediatric); F17.210 Nicotine dependence, cigarettes, uncomplicated; E66.01 Morbid (severe) obesity due to excess calories; E78.5 Hyperlipidemia, unspecified; D69.6 Thrombocytopenia, unspecified; N40.0 Benign prostatic hyperplasia without lower urinary tract symptoms; T38.0X5A Adverse effect of glucocorticoids and synthetic analogues, initial encounter; E11.65 Type 2 diabetes mellitus with hyperglycemia; C67.9 Malignant neoplasm of bladder, unspecified; Z20.822 Contact with and (suspected) exposure to COVID-19; Z79.899 Other long term (current) drug therapy; Z79.84 Long term (current) use of oral hypoglycemic drugs; Z79.82 Long term (current) use of aspirin
CPT/HCPCS: 36415; 71045; 71275; 80053; 80076; 82728; 82962; 83036; 83605; 83615; 83735; 83880; 84145; 85025; 85379; 86140; 87040; 87070; 87205; 87426; 87449; 87633; 87635; 94640; 99251; 99285; 99406; J7030; J7050; Q9967; U0005; A4216; G0463; U0003

== ENCOUNTER → 2021-04-02 06:30 | Outpatient (CLI) | payer BC, SELFPAY ==
--- NOTE | 2021-04-02 17:22 | STRESSREP ---
Stress Test Report Exercise myocardial perfusion stress test. 60-year-old man with a history of chest heaviness. Medications Metformin glimepiride coenzyme Q 10. Stress protocol: Resting EKG demonstrates normal sinus rhythm with a rate of 63 bpm normal intervals are noted resting blood pressure is 150/88 mmHg. The patient exercised according to the regular Micah protocol for total duration of 5 minutes and 30 seconds. Patient completed 2 minutes and 30 seconds into stage II of the Micah protocol. The maximum heart rate attained was 134 bpm which was 84% of max impact her heart rate the maximum workload was 7.2 metabolic equivalents. At rest nonspecific ST changes were noted and at peak exercise there was an incomplete left bundle branch block noted with downsloping ST depression noted in leads III and aVF with rapid reversion to baseline on resting. The above though suggestive but not diagnostic of ischemia. The maximum blood pressure was 240/90 mmHg suggesting a hypertensive response to exercise. The test was terminated due to dyspnea no chest pain was noted. Myocardial perfusion protocol. 14.7 mCi of technetium 99m sestamibi was injected at rest. The patient exercised according to regular Micah protocol for 5-1/2 minutes and at peak exercise 44.9 mCi of technetium 99m sestamibi was injected stress images were obtained stress and rest images were reconstructed and compared in the short axis vertical long and horizontal long axis. Gated images were also obtained. Perfusion SPECT analysis: Review of the stress images demonstrate normal uptake of tracer noted in all areas of the myocardium. The resting images similarly demonstrate normal uptake of tracer noted in all areas of the myocardium. No areas of reversibility are noted to suggest ischemia no previous infarct is noted. Gated SPECT analysis: The gated ejection fraction is 60%. Conclusion: Normal exercise myocardial perfusion stress test at a moderate workload. Preserved ejection fraction.
== END ==
PROVIDERS: PCP Family Medicine; Referring Provider Family Medicine; Visit Provider Family Medicine
DX: R07.89 Other chest pain (principal)
CPT/HCPCS: 78452; 93017; A9500; A4216

== ENCOUNTER → 2021-04-26 20:08 | Outpatient (CLI) | payer BC, SELFPAY | PROVIDERS: PCP Family Medicine; Referring Provider Internal Medicine Critical Care Medicine; Visit Provider Internal Medicine Critical Care Medicine | DX: G47.33 Obstructive sleep apnea (adult) (pediatric) (principal) | CPT/HCPCS: 95811 ==

== ENCOUNTER → 2021-05-21 07:54 | Outpatient (CLI) | payer BC, SELFPAY ==
[2021-05-21 08:15] VITALS: PULSE 73; PULSE 86; PULSE 91; PULSE 92; PULSE 93; PULSE 94; PULSE 95; O2SAT 92; O2SAT 93
--- NOTE | 2021-05-21 13:41 | PCM.PSN.6M ---
PSN 6 Minute Walk Test 6 Minute Walk Test 6 Minute Walk Test: 6 Minute Walk Test PSN:6-Minute Walk Test Start: 05/21/21 08:26 Freq: Status: Active Protocol: RESP.6MINW Document 05/21/21 08:15 KARI (Rec: 05/21/21 08:28 [id number]) 6 Minute Walk Test Date Performed 05/21/21 Time Performed 08:15 Height 5 ft 11 in Weight: 122.47 kg Weight in Pounds 270.[address]: Jeffy Ponce FIO2 (% Oxygen) 21 Assistive device used: None Pre-test Oxygen Delivery Method Room Air Pulse Ox (%) 92 Pulse Rate (60-100 beats/min) 73 Dyspnea Shannon Scale (0-10) 0 Exertion Shannon Scale (6-20) 6 1st minute Oxygen Delivery Method Room Air Pulse Ox (%) 93 Pulse Rate (60-100 beats/min) 93 2nd minute Oxygen Delivery Method Room Air Pulse Ox (%) 93 Pulse Rate (60-100 beats/min) 93 3rd minute Oxygen Delivery Method Room Air Pulse Ox (%) 92 Pulse Rate (60-100 beats/min) 94 4th minute Oxygen Delivery Method Room Air Pulse Ox (%) 92 Pulse Rate (60-100 beats/min) 91 5th minute Oxygen Delivery Method Room Air Pulse Ox (%) 93 Pulse Rate (60-100 beats/min) 92 6th minute Oxygen Delivery Method Room Air Pulse Ox (%) 92 Pulse Rate (60-100 beats/min) 95 Post-test Oxygen Delivery Method Room Air Pulse Ox (%) 93 Pulse Rate (60-100 beats/min) 86 Dyspnea Shannon Scale (0-10) 2 Exertion Shannon Scale (6-20) 11 Full Laps Walked 16 Partial Lap, Number of Tiles Walked 12 Total Distance Walked (ft) 956 Interpretation Interpretation: The patient was able to ambulate 956 feet over the course of 6 minutes on room air with no assistive devices or breaks. The patient was noted to have a lower baseline saturation of 92% prior to initiation of the study. Patient did not experience significant desaturation, but did have an increase in heart rate up to a peak of 95. These findings are consistent with a respiratory limitation exercise tolerance. Recommendations Recommendations: No supplemental oxygen is indicated at this time. However, patient will need to be followed closely given level of desaturation
== END ==
PROVIDERS: PCP Family Medicine; Referring Provider Internal Medicine Critical Care Medicine; Visit Provider Internal Medicine Critical Care Medicine
DX: J44.9 Chronic obstructive pulmonary disease, unspecified (principal)
CPT/HCPCS: 94618

== ENCOUNTER → 2021-05-24 09:22 | Outpatient (CLI) | payer BC, SELFPAY ==
--- NOTE | 2021-05-25 10:52 | PFTCOMP_ITS ---
COMPLETE PULMONARY FUNCTION TEST INTERPRETATION Brief HPI: Patient is a 61 year old male, currently under the care of Dr. Ponce, who presents to [facility] for complete pulmonary function tests secondary to diagnosis of COPD. Respiratory therapist reports good effort and reproducible results. Interpretation: Forced expiration spirometry shows a moderately severe large airways obstructive ventilatory defect with an FEV1 of 51% predicted. There is no significant bronchodilator response by strict ATS criteria. Spirograms are of good quality and plateau slowly, indicating slowly emptying areas of the lungs. The respiratory flow volume loop shows decreased expiratory flow rates at all lung volumes consistent with airway obstruction. Lung volumes by body plethysmography show an elevated total lung capacity at 15.3, 231% predicted. FRC and RV are elevated out of proportion. Lung volume measurements are consistent with hyperinflation and air-trapping. The predicted volumes appear to be spurious, but pattern is consistent with air-trapping Diffusion capacity by carbon monoxide is normal at 110% predicted. The airway resistance is normal. No previous pulmonary function tests were available for review. Impression: Irreversible moderately severe large airways obstructive ventilatory defect with relatively preserved DLCO
== END ==
PROVIDERS: PCP Family Medicine; Referring Provider Internal Medicine Critical Care Medicine; Visit Provider Internal Medicine Critical Care Medicine
DX: J44.9 Chronic obstructive pulmonary disease, unspecified (principal)
CPT/HCPCS: 94060; 94726; 94729

== ENCOUNTER → 2021-06-11 13:00 | Outpatient (CLI) | payer BC, SELFPAY | PROVIDERS: PCP Family Medicine; Visit Provider Nurse Practitioner Acute Care | DX: G47.33 Obstructive sleep apnea (adult) (pediatric) (principal) | CPT/HCPCS: 98960; G0463 ==

== ENCOUNTER 2021-06-17 10:29 | Outpatient (CLI) | payer BC, SELFPAY ==
[2021-06-17 12:40] LABS: Anion Gap 5 (5-15); BUN 14 mg/dL (7-18); BUN/Creat Ratio 13.9 RATIO (10-20); Calcium,Total 9.2 mg/dL (8.5-10.1); Chloride 103 mmol/L (98-107); Cholesterol 165 mg/dL (200); Creatinine, Serum 1.01 mg/dL (0.70-1.30); EST Glomerular Filtration Rate 80 mL/min (>60); Est Glom Filt Rate - Afr Amer 96 mL/min (>60); Glucose 287 mg/dL (74-106); High Density Lipoprotein 33 mg/dL; Potassium 4.6 mmol/L (3.5-5.1); Sodium Level 136 mmol/L (136-145); Triglycerides 293 mg/dL; Very Low Density Lipoprotein 59 mg/dL (5-40)
[2021-06-17 13:16] LABS: Microalbumin,Random Urine 87.8 mg/L (NO RANGE EST.); Microalbumin:Creatinine Ratio 82.1 mg/g CRE (<30 mg/g CRE)
== END 2021-06-17 23:59 | disposition short-term general hospital (02) ==
LOC: MFPLAB 10:31
PROVIDERS: PCP Family Medicine; Visit Provider Family Medicine
DX: E11.65 Type 2 diabetes mellitus with hyperglycemia (principal)
CPT/HCPCS: 36415; 80048; 80061; 82043; 82570

== ENCOUNTER 2021-07-24 18:11 | Outpatient (CLI) | payer BC, SELFPAY ==
[2021-07-24 20:13] LABS: M R Staph aureus DNA By PCR Negative (Negative); Probe Check PASS; Specimen Processing Control PASS; Staph aureus DNA By PCR NEGATIVE (Negative)
== END 2021-07-24 23:59 | disposition home or self-care (01) ==
PROVIDERS: PCP Family Medicine; Visit Provider Podiatrist
DX: L03.116 Cellulitis of left lower limb (principal)
CPT/HCPCS: 87070; 87075; 87205; 87640

== ENCOUNTER → 2021-12-06 | Outpatient (CLI) | payer BC, SELFPAY ==
--- NOTE | 2021-12-06 06:44 | MRI_ITS ---
STUDY: MRI BRAIN WITH AND WITHOUT CONTRAST (ATTENTION INTERNAL AUDITORY CANALS - I.A.C.''s) REASON FOR EXAM: Male, 61 years old. DIZZINESS X 1 YEAR TECHNIQUE: Standardized multiplanar fat and water weighted pulse sequences were obtained. ml of 27cc dotarem contrast material was administered intravenously for the contrast portion of the examination. Mild motion artifact is present on several sequences. COMPARISON: None. FINDINGS: Normal bilateral temporal bones. Normal bilateral internal auditory canals. There is no demonstrated intracanalicular or cisternal vestibular schwannoma (acoustic neuroma). There is no enhancement of the bilateral VIIth or VIIIth cranial nerves. Normal bilateral cochlea, vestibules and semicircular canals. No visualized cerebellar pontine angle mass or cyst or enlargement of the IACs. There is mild cerebral atrophy with widening of the extra-axial spaces and ventricular dilatation. There are a limited number of small white matter hyperintensities, distributed throughout the deep white matter tracts of the cerebral hemispheres, consistent with mild chronic white matter ischemic changes. There is no evidence for recent intracranial ischemia or other cause of cytotoxic edema on diffusion weighted imaging (DWI). Normal bilateral basal ganglia. Normal thalami. Normal flow voids within the major intracranial circulation suggesting patency by spin echo criteria. Normal venous enhancement. There is no enhancing intra-axial or extra-axial abnormality. There is no extra-axial fluid accumulation. Normal sella turcica, pituitary gland, infundibular stalk, optic chiasm and hypothalamus. Normal tectal plate and pineal gland. Normal midbrain, lena and medulla. Normal cerebellum. Normal basal cisterns. No demonstrated orbital abnormality, within the constraints of a routine brain study. There is mucoperiosteal inflammatory disease of the paranasal sinuses consistent with mild chronic sinusitis. Normal calvarium and skull base. Normal visualized soft tissue structures. Normal visualized upper cervical spine. MRI/Brain W/WO Contrast IMPRESSION: 1. Normal unenhanced and enhanced MRI of the bilateral internal auditory canals (I.A.C''s). 2. Minimal chronic ischemic of the brain, as described above. Electronically Signed: Rob Ochoa MD at 15:53 EDT ,
[2021-12-06 06:51] LABS: CREATININE FINGERSTICK < 0.9 mg/dL (0.70-1.30); EGFR FINGERSTICK > 60.0000 mL/min (>60)
== END | disposition home or self-care (01) ==
LOC: MRI 06:25
PROVIDERS: PCP Family Medicine; Referring Provider Otolaryngology Otolaryngology/Facial Plastic Surgery; Visit Provider Otolaryngology Otolaryngology/Facial Plastic Surgery
DX: R42 Dizziness and giddiness (principal)
CPT/HCPCS: 70553; A9575

== ENCOUNTER → 2021-12-27 | Outpatient (CLI) | payer BC, SELFPAY ==
[2021-12-27 18:24] LABS: Anion Gap 5 (5-15); BUN 17 mg/dL (7-18); BUN/Creat Ratio 15.6 RATIO (10-20); Chloride 105 mmol/L (98-107); Cholesterol 131 mg/dL (200); Creatinine, Serum 1.09 mg/dL (0.70-1.30); EST Glomerular Filtration Rate 73 mL/min (>60); Est Glom Filt Rate - Afr Amer 88 mL/min (>60); Glucose 118 mg/dL (74-106); High Density Lipoprotein 27 mg/dL; Potassium 4.1 mmol/L (3.5-5.1); Sodium Level 137 mmol/L (136-145); Triglycerides 188 mg/dL; Very Low Density Lipoprotein 38 mg/dL (5-40)
[2021-12-27 18:36] LABS: Microalbumin,Random Urine 33.2 mg/L (NO RANGE EST.); Microalbumin:Creatinine Ratio 30.5 mg/g CRE (<30 mg/g CRE)
== END | disposition home or self-care (01) ==
LOC: MFPLAB 16:18
PROVIDERS: PCP Family Medicine; Referring Provider Family Medicine; Visit Provider Family Medicine
DX: E11.9 Type 2 diabetes mellitus without complications (principal)
CPT/HCPCS: 36415; 80048; 80061; 82043; 82570

== ENCOUNTER → 2022-02-06 | Outpatient (CLI) | payer BC, SELFPAY ==
[2022-02-06 17:47] LABS: Absolute Lymphocyte Count 1.09 X10^3/uL (0.83-4.51); Absolute Neutrophil Count 2.6 X10^3/uL (2.0-7.7); Basophil# 0.02 X10^3/uL; Basophil% 0.5 % (0-1); Eosinophil# 0.09 X10^3/uL; Eosinophils% 2.1 % (0-5); Hematocrit 52.3 % (40-54); Lymphocyte # 1.09 X10^3/ul (0.83-4.51); Lymphocyte % 25.3 % (19-41); Mean Corp Hgb Conc 34.4 g/dL (32-36); Mean Corpuscular Hgb 30.9 pg (27.0-32.0); Mean Corpuscular Volume 89.7 fL (80-94); Mean Platelet Vol. 10.7 fl (6.2-12.0); Monocyte# 0.47 X10^3/uL; Monocyte% 10.9 % (0-10); NRBC Flagged by Analyzer 0 % (0-5); Neutrophil # 2.62 X10^3/uL (2.7-7.7); Platelet Count 146 K/mm3 (150-450); RBC Distribution Width CV 14.2 % (11.6-14.6); RBC Distribution Width SD 46.4 fl (35.1-43.9); Red Blood Count 5.83 M/mm3 (4.6-6.2); White Blood Count 4.3 K/mm3 (4.4-11.0)
[2022-02-06 18:22] LABS: Vitamin B12 425 pg/mL (211-911); Vitamin D,25 Hydroxy 41.5 ng/mL
[2022-02-06 18:44] LABS: ALB/GLOB Ratio 0.9 RATIO (0.9-2.4); AST(SGOT) 15 U/L (15-37); Alanine Aminotransfer ALT/SGPT 17 U/L (16-61); Albumin, Serum 3.6 g/dL (3.2-5.0); Alkaline Phosphatase 84 U/L (45-117); Anion Gap 7 (5-15); BUN 15 mg/dL (7-18); BUN/Creat Ratio 13.4 RATIO (10-20); CRP 7.36 mg/L (0.0-3.0); Calcium,Total 8.7 mg/dL (8.5-10.1); Chloride 106 mmol/L (98-107); Creatinine, Serum 1.12 mg/dL (0.70-1.30); EST Glomerular Filtration Rate 70 mL/min (>60); Est Glom Filt Rate - Afr Amer 85 mL/min (>60); Globulin 3.9 g/dL (2.2-4.2); Glucose 154 mg/dL (74-106); Potassium 3.8 mmol/L (3.5-5.1); Protein, Total 7.5 g/dL (6.4-8.2); Sodium Level 139 mmol/L (136-145)
[2022-02-06 20:48] LABS: Erythrocyte Sedimentation Rate 10 mm/hr (0-20)
[2022-02-07 15:15] LABS: Pathologist Review Reviewed
[2022-02-13 13:59] LABS: VITAMIN B6 16.1 ug/L (3.4-65.2); Vitamin B1, Thiamine 168.7 nmol/L (66.5-200.0)
== END | disposition home or self-care (01) ==
LOC: MFPLAB 15:36
PROVIDERS: PCP Family Medicine; Referring Provider Family Medicine; Visit Provider Podiatrist
DX: G62.9 Polyneuropathy, unspecified (principal); M19.071 Primary osteoarthritis, right ankle and foot; M19.072 Primary osteoarthritis, left ankle and foot
CPT/HCPCS: 36415; 80053; 82306; 82607; 82746; 84207; 84425; 84550; 85025; 85652; 86140

== ENCOUNTER → 2022-04-07 | Outpatient (CLI) | payer BC, SELFPAY ==
--- NOTE | 2022-04-07 17:23 | CT_ITS ---
EXAM: CT CHEST WITH INTRAVENOUS CONTRAST CLINICAL INDICATION: URINARY CANCER TECHNIQUE: Helically acquired images were obtained of the chest with intravenous contrast. This CT exam was performed using one or more of the following dose reduction techniques: automated exposure control, adjustment of the mA and/or kV according to patient size, and/or use of iterative reconstruction technique. This report was created using [employer] report generation technology. CONTRAST: IV 100mL Isovue-370 RADIATION DOSE: CTDIvol = 18.3 mGy, DLP = 792.00 mGy-cm COMPARISON: 9.22.21 FINDINGS: LUNGS AND PLEURAL SPACES: Unremarkable. No mass. No consolidation or edema. No pleural effusion or thickening. No pneumothorax. HEART: There are calcifications of the coronary arteries. Heart size is normal. No pericardial effusion. MEDIASTINUM: Unremarkable. No mediastinal or hilar adenopathy. Esophagus is unremarkable. No hiatal hernia. THYROID: Unremarkable. No thyroid lesions. BONES/JOINTS: There are degenerative changes of the shoulders. There are multi-level degenerative changes of the thoracic spine. No suspicious lytic or blastic abnormality. VASCULATURE: There is atherosclerotic calcification of the aortic arch with tortuosity and elongation of the aortic arch and descending thoracic aorta. Thoracic aorta is non-dilated. No thoracic aortic dissection. No obvious central pulmonary embolism although this study was not performed with the pulmonary embolism protocol. CT/Chest WITH Contrast IMPRESSION: No acute findings in the chest. Electronically Signed: Jake Solares MD at 18:11 EDT Reading Location ID and State: [facility] / [place] , Service support ,
[2022-04-08 08:10] LABS: CREATININE FINGERSTICK < 0.9 mg/dL (0.70-1.30); EGFR FINGERSTICK > 60 mL/min (>60)
== END | disposition home or self-care (01) ==
LOC: CT 17:19
PROVIDERS: PCP Family Medicine
DX: Z85.51 Personal history of malignant neoplasm of bladder (principal)
CPT/HCPCS: 71260; Q9967

== ENCOUNTER → 2022-05-16 | Outpatient (CLI) | payer BC, SELFPAY ==
--- NOTE | 2022-05-16 15:37 | RAD_ITS ---
STUDY: X-RAY - RIGHT SHOULDER REASON FOR EXAM: Male, 62 years old. Right shoulder pain. TECHNIQUE: 4 view(s) of the shoulder. COMPARISON: None. FINDINGS: Normal glenohumeral articulation. There is mild degenerative arthrosis of the acromioclavicular joint without inferior osseous spur formation. Normal acromion. There is no acute fracture, dislocation or destructive osseous pathology. There is demineralization of the humerus and visualized osseous structures. The soft tissue structures are unremarkable. Normal visualized pulmonary apex. RAD/Shoulder min 2 Views IMPRESSION: Osteopenia and mild degenerative changes of the acromioclavicular joint. There is no acute fracture or dislocation. Electronically Signed: Syed Bassett DO at 16:10 EST ,
== END | disposition home or self-care (01) ==
LOC: MTRAD 15:37
PROVIDERS: PCP Family Medicine; Referring Provider Family Medicine; Visit Provider Family Medicine
DX: M25.511 Pain in right shoulder (principal)
CPT/HCPCS: 73030

== ENCOUNTER 2022-06-12 18:30 | Outpatient (RCR) | payer BC, SELFPAY ==
--- NOTE | 2022-05-26 12:48 | HP.PTEVAL_ITS ---
Patient's Visit Information KATALINA ZEPEDA is a 62 year old M referred to Physical Therapy by Dr. Gasper Liang MD with a diagnosis of . Date of Evaluation: 05/23/22 Physical Therapist: Carlton Koroma DPT - Visit Plan Frequency: 2x /Week Duration: 4 Weeks Plan: progress pec minor/major stretching and scapular strengthening to open sub-acromial space and free R biceps tendon from irritation. 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 Pt is unable to sleep on R side and cannot raise arm overhead or reach laterally to R side without pain. Pt is having decreased ability to complete job requirements with juan job. X-ray and CT scan of R shoulder revealed degenerative changes within shoulder. - Pain R shoulder Pain Intensity (Out of 10): 0 - Objective MMT: R shoulder: 4/5 shoulder abduction:4- painful flexion: 4-/5 painful IR: 4/5 ER: 4/5 Elbow flexion: 4-/5 painful extension: 4/5. ROM: 90 deg abduction 115 deg flexion. special tests: +joshrgasons, biceps load 2 R, guerrero ketty, horiz adduction. palpation: tenderness with biceps tendon tenderness and along RTC on R shoulder. quick dash: 36 - Goals Goal 1:: Pt will improve R shoulder ROM to WNL without pain to return to PLOF. Goal Time Frame: 2-4 Weeks Goal 2:: Pt will improve R shoulder strength to equal of L shoulder to demo return to PLOF. Goal Time Frame: 2-4 Weeks Goal 3:: Pt will score <22 on quick dash to demo ADL and functional abilities without pain. Goal Time Frame: 2-4 Weeks Goal 4:: Pt will demo negative tenderness to posterior shoulder and biceps tendon of R arm to aid in activity completion without pain. Goal Time Frame: 2-4 Weeks Goal 5:: Pt will be able to reach overhead and laterally with R shoulder without pain to ease aid of ADL's. Goal Time Frame: 2-4 Weeks - Rehabilitation Potential Physical Therapy Diagnosis: Pt presented with tenderness to palpation of posterior shoulder and R biceps tendon. Pt demo'd decreased R shoulder ROM, strength of R arm, positive yergasons, biceps load 2, guerrero ketty, horiz adduction of R shoulder. Based off objective findings and personal factors pt is appropriate for a moderate complexity eval code. Rehabilitation Potential: Good - Anticipated Interventions Thank you for the opportunity to evaluate your patient. For Medicare and Medicare HMO plans, please review the plan of care and approve it. It will need to be FAXED BACK to us at [phone] for Medicare purposes. For Medicare only, by signing this I certify the plan of care. Please let me know if there are questions or concerns regarding this plan of care. Physician Signature: Date:
--- NOTE | 2022-10-23 11:39 | HP.PT.NRP ---
KATALINA ZEPEDA was seen in my office for initial evaluation on 05/23/22. The following Plan of Care was established for this patient: Initial Frequency: 2x /Week Initial Duration: 4 Weeks This patient was last seen in our office 06/12/22. Pertinent comments regarding their Physical therapy will appear below: Pt seen 4 visits of initial POC and was doing better. He did not return for any further visits. At this point, it has been over 3 months and I will discontinue from my care At this point I will be discontinuing this patient from physical therapy. I would be happy to see this patient again in the future if found appropriate by the physician. Thank you! Roderick Hilliard, DPT, OCS, CSCS
== END 2022-06-12 19:00 | disposition home or self-care (01) ==
LOC: PT 18:30
PROVIDERS: PCP Family Medicine; Referring Provider Family Medicine; Visit Provider Family Medicine
DX: M25.511 Pain in right shoulder (principal)
CPT/HCPCS: 97110; 97162

== ENCOUNTER → 2022-09-26 | Outpatient (CLI) | payer BC, SELFPAY ==
[2022-09-26 18:03] LABS: Anion Gap 4 (5-15); BUN 22 mg/dL (7-18); BUN/Creat Ratio 19.1 RATIO (10-20); Calcium,Total 8.9 mg/dL (8.5-10.1); Chloride 105 mmol/L (98-107); Cholesterol 135 mg/dL (200); Creatinine, Serum 1.15 mg/dL (0.70-1.30); EST Glomerular Filtration Rate 68 mL/min (>60); Est Glom Filt Rate - Afr Amer 83 mL/min (>60); Glucose 141 mg/dL (74-106); High Density Lipoprotein 29 mg/dL; Potassium 4.1 mmol/L (3.5-5.1); Sodium Level 136 mmol/L (136-145); Triglycerides 229 mg/dL; Very Low Density Lipoprotein 46 mg/dL (5-40)
[2022-09-26 18:23] LABS: Microalbumin,Random Urine 33.2 mg/L (NO RANGE EST.); Microalbumin:Creatinine Ratio 39.4 mg/g CRE (<30 mg/g CRE)
== END | disposition home or self-care (01) ==
LOC: MFPLAB 16:17
PROVIDERS: PCP Family Medicine; Visit Provider Family Medicine
DX: E11.9 Type 2 diabetes mellitus without complications (principal)
CPT/HCPCS: 36415; 80048; 80061; 82043; 82570

== ENCOUNTER → 2022-10-07 | Outpatient (CLI) | payer BC, SELFPAY ==
--- NOTE | 2022-10-07 10:05 | RAD_ITS ---
INDICATION: CELLULITIS EXAMINATION/TECHNIQUE: X-RAY - LEFT XR Hand 2 Views 2 VIEWS COMPARISON: None. FINDINGS: SOFT TISSUES: Diffuse soft tissue swelling throughout the metacarpal region and to lesser degree phalanges. No radiopaque foreign body. BONES/JOINTS: Widening of scapholunate distance. Normal alignment. Preservation of the joint space.. No sclerotic or destructive changes observed. RAD/Hand 2 Views IMPRESSION: Diffuse soft tissue swelling consistent with cellulitis. Widening of scapholunate distance suggestive of scapholunate ligament tear. Electronically Signed: Shmuel Jin MD, [facility] at 18:45 EDT ,
[2022-10-07 12:57] LABS: Erythrocyte Sedimentation Rate 1 mm/hr (0-20)
[2022-10-07 13:25] LABS: Uric Acid 5.8 mg/dL (3.5-7.2)
== END | disposition home or self-care (01) ==
LOC: MTLAB 10:02
PROVIDERS: PCP Family Medicine; Referring Provider Family Medicine; Visit Provider Family Medicine
DX: L03.90 Cellulitis, unspecified (principal)
CPT/HCPCS: 36415; 73120; 84550; 85652

== ENCOUNTER → 2023-06-26 | Outpatient (CLI) | payer BC, SELFPAY ==
[2023-06-26 17:52] LABS: Microalbumin,Random Urine 38.4 mg/L (NO RANGE EST.); Microalbumin:Creatinine Ratio 78.7 mg/g CRE (<30 mg/g CRE)
[2023-06-26 18:06] LABS: AST(SGOT) 12 U/L (15-37); Alanine Aminotransfer ALT/SGPT 15 U/L (16-61); Albumin, Serum 3.5 g/dL (3.2-5.0); Alkaline Phosphatase 68 U/L (45-117); Anion Gap 6 (5-15); BUN 22 mg/dL (7-18); BUN/Creat Ratio 20.8 RATIO (10-20); Chloride 104 mmol/L (98-107); Cholesterol 147 mg/dL (200); Creatinine, Serum 1.06 mg/dL (0.70-1.30); EST Glomerular Filtration Rate 75 mL/min (>60); Est Glom Filt Rate - Afr Amer 90 mL/min (>60); Globulin 3.5 g/dL (2.2-4.2); Glucose 174 mg/dL (74-106); High Density Lipoprotein 40 mg/dL; Potassium 4.5 mmol/L (3.5-5.1); Sodium Level 137 mmol/L (136-145); Triglycerides 226 mg/dL; Very Low Density Lipoprotein 45 mg/dL (5-40)
== END | disposition home or self-care (01) ==
LOC: MFPLAB 14:37
PROVIDERS: PCP Family Medicine; Visit Provider Family Medicine
DX: E11.9 Type 2 diabetes mellitus without complications (principal)
CPT/HCPCS: 36415; 80053; 80061; 82043; 82570

== ENCOUNTER → 2023-09-15 | Outpatient (CLI) | payer BC, SELFPAY | END | disposition home or self-care (01) | LOC: PSN 06:32 | PROVIDERS: PCP Family Medicine; Referring Provider Nurse Practitioner Acute Care; Visit Provider Nurse Practitioner Acute Care | DX: J44.9 Chronic obstructive pulmonary disease, unspecified (principal) | CPT/HCPCS: 94060; 94726; 94729 ==

== ENCOUNTER → 2023-09-23 | Outpatient (CLI) | payer BC, SELFPAY ==
--- NOTE | 2023-09-23 18:36 | CT_ITS ---
EXAM: CT CHEST, LUNG CANCER SCREENING WITHOUT INTRAVENOUS CONTRAST CLINICAL INDICATION: smoker TECHNIQUE: Helically acquired images were obtained of the chest without intravenous contrast using low dose (LDCT) lung cancer screening protocol. This CT exam was performed using one or more of the following dose reduction techniques: automated exposure control, adjustment of the mA and/or kV according to patient size, and/or use of iterative reconstruction technique. COMPARISON: CTA chest, 03/06/[address] chest with contrast, 04/07/2022. FINDINGS: LUNGS AND PLEURAL SPACES: Right basilar peripheral pleural scarring is nonspecific perhaps the sequela of prior infection or injury. This is similar to the prior CT dated 04/07/2022. No pulmonary nodules are identified. No mass. No pneumothorax. HEART: No significant abnormality. Heart size is normal. No pericardial effusion. No significant coronary artery calcifications. MEDIASTINUM: No significant abnormality. No mediastinal or hilar adenopathy. Esophagus is unremarkable. No hiatal hernia. THYROID: No significant abnormality. No thyroid lesions. BONES/JOINTS: Degenerative changes in the spine. No suspicious lytic or blastic abnormality. VASCULATURE: No significant abnormality. Thoracic aorta is non-dilated. LYMPH NODES: No significant abnormality. No enlarged lymph nodes. CT/Low Dose CT Lung Screening IMPRESSION: ACR Lung CT Screening Reporting And Data System (Lung-RADS) score: 1 - Recommend continued annual screening with a low-dose CT (LDCT) in 12 months. Electronically Signed: Carlo Mendosa DO at 22:13 EDT ,
== END | disposition home or self-care (01) ==
LOC: CT 18:33
PROVIDERS: PCP Family Medicine; Referring Provider Nurse Practitioner Acute Care; Visit Provider Nurse Practitioner Acute Care
DX: Z12.2 Encounter for screening for malignant neoplasm of respiratory organs (principal); J44.9 Chronic obstructive pulmonary disease, unspecified; F17.200 Nicotine dependence, unspecified, uncomplicated
CPT/HCPCS: 71271

== ENCOUNTER → 2023-09-30 | Outpatient (CLI) | payer BC, SELFPAY ==
[2023-09-30 12:21] VITALS: PULSE 78; PULSE 80; PULSE 92; PULSE 93; PULSE 94; PULSE 95; O2SAT 92; O2SAT 93; O2SAT 94
--- NOTE | 2023-10-01 07:23 | WT_ITS ---
PSN 6 Minute Walk Test 6 Minute Walk Test 6 Minute Walk Test: 6 Minute Walk Test PSN:6-Minute Walk Test Start: 09/30/23 12:21 Freq: Status: Active Protocol: [id number].[id number] Document 09/30/23 12:21 OSCAR (Rec: 09/30/23 12:23 OSCAR [id number]) 6 Minute Walk Test Date Performed 09/30/23 Time Performed 12:10 Height 5 ft 11 in Weight: 255 lb Weight in Pounds 255.[address]: Luh Mejia [employer] Assistive device used: None Pre-test Oxygen Delivery Method Room Air Pulse Ox 93 Pulse Rate (60-100) 78 Dyspnea Shannon Scale (0-10) 0 Exertion Shannon Scale (6-20) 6 1st minute Oxygen Delivery Method Room Air Pulse Ox 94 Pulse Rate (60-100) 92 2nd minute Oxygen Delivery Method Room Air Pulse Ox 92 Pulse Rate (60-100) 92 3rd minute Oxygen Delivery Method Room Air Pulse Ox 94 Pulse Rate (60-100) 93 4th minute Oxygen Delivery Method Room Air Pulse Ox 93 Pulse Rate (60-100) 93 5th minute Oxygen Delivery Method Room Air Pulse Ox 94 Pulse Rate (60-100) 95 6th minute Oxygen Delivery Method Room Air Pulse Ox 93 Pulse Rate (60-100) 94 Dyspnea Shannon Scale (0-10) 2 Exertion Shannon Scale (6-20) 12 Post-test Oxygen Delivery Method Room Air Pulse Ox 94 Pulse Rate (60-100) 80 Full Laps Walked 16 Partial Lap, Number of Tiles Walked 5 Total Distance Walked (ft) 949 Interpretation Interpretation: The patient ambulated 949 feet over the course of 6 minutes beginning on room air without assistive devices. Pretesting oxygen saturation was noted to be 93% on room air. With ambulation, the [place] oxygen saturation was 92%. There was no significant exertional oxygen desaturation. Recommendations Recommendations: There is no indication for the use of supplemental oxygen at this time.
== END | disposition home or self-care (01) ==
LOC: PSN 12:07
PROVIDERS: PCP Family Medicine; Referring Provider Nurse Practitioner Acute Care; Visit Provider Nurse Practitioner Acute Care
DX: J44.9 Chronic obstructive pulmonary disease, unspecified (principal)
CPT/HCPCS: 94618

== ENCOUNTER → 2023-11-24 | Outpatient (CLI) | payer BC, SELFPAY ==
[2023-11-24 07:14] LABS: AST(SGOT) 18 U/L (15-37); Alanine Aminotransfer ALT/SGPT 16 U/L (16-61); Albumin, Serum 3.3 g/dL (3.2-5.0); Alkaline Phosphatase 86 U/L (45-117); Bilirubin, Direct 0.21 mg/dL (0.00-0.30); Cholesterol 60 mg/dL (200); Globulin 3.9 g/dL (2.2-4.2); High Density Lipoprotein 28 mg/dL; Protein, Total 7.2 g/dL (6.4-8.2); Triglycerides 83 mg/dL; Very Low Density Lipoprotein 17 mg/dL (5-40)
== END | disposition home or self-care (01) ==
LOC: LAB 06:17
PROVIDERS: PCP Family Medicine; Referring Provider Internal Medicine Cardiovascular Disease; Visit Provider Internal Medicine Cardiovascular Disease
DX: E11.42 Type 2 diabetes mellitus with diabetic polyneuropathy (principal)
CPT/HCPCS: 36415; 80061; 80076

== ENCOUNTER → 2024-08-12 | Outpatient (CLI) | payer MEDICARE, OTHER, SELFPAY ==
[2024-08-12 10:29] LABS: Mean Corp Hgb Conc 33.2 g/dL (32-36); Mean Corpuscular Hgb 31.2 pg (27.0-32.0); Mean Platelet Vol. 11.2 fl (6.2-12.0); Platelet Count 143 K/mm3 (150-450); RBC Distribution Width CV 14.3 % (11.6-14.6); RBC Distribution Width SD 49.6 fl (35.1-43.9); Red Blood Count 5.96 M/mm3 (4.6-6.2); White Blood Count 6.9 K/mm3 (4.4-11.0)
[2024-08-12 10:34] LABS: Hemoglobin 18.6 g/dL (13.0-16.5); Scan Indicated on CBC? Y/N YES- FLAGS NOTED
[2024-08-12 11:07] LABS: Pathologist Review May foll
== END | disposition home or self-care (01) ==
LOC: MFPLAB 09:11
PROVIDERS: PCP Family Medicine; Referring Provider Family Medicine; Visit Provider Family Medicine
DX: D75.1 Secondary polycythemia (principal)
CPT/HCPCS: 85027

== ENCOUNTER 2024-09-01 16:25 | Outpatient (CLI) | payer MEDICARE, OTHER, SELFPAY ==
[2024-09-01 18:37] LABS: Vitamin B12 775 pg/mL (180-914)
== END 2024-09-01 23:59 | disposition home or self-care (01) ==
LOC: MFPLAB 16:26
PROVIDERS: PCP Family Medicine; Referring Provider Family Medicine; Visit Provider Family Medicine
DX: D64.9 Anemia, unspecified (principal)
CPT/HCPCS: 36415; 82607

== ENCOUNTER → 2024-09-08 | Outpatient (CLI) | payer MEDICARE, OTHER, SELFPAY ==
[2024-09-08 15:35] LABS: Color, Urine Amber (Yellow); Glucose, Dipstick 1000 mg/dl (Normal); Ketone-Dipstick 5 mg/dl (Negative); Leukocyte Esterase-Dipstick 25 /ul (Negative); Nitrite-Dipstick Positive (Negative); Occult Blood-Urine 250 /ul (Negative); Protein-Dipstick 100 mg/dl (Negative); Urine Bilirubin Dipstick Negative (Negative); Urine Clarity Cloudy (Clear); Urine Urobilinogen Normal (Normal)
== END | disposition home or self-care (01) ==
LOC: LABSPEC 11:47
PROVIDERS: PCP Family Medicine
DX: R30.0 Dysuria (principal)
CPT/HCPCS: 81002

== ENCOUNTER → 2024-09-12 | Outpatient (CLI) | payer MEDICARE, SELFPAY | END | disposition home or self-care (01) | LOC: MTLAB 15:59 | PROVIDERS: PCP Family Medicine | DX: R30.0 Dysuria (principal) | CPT/HCPCS: 87086 ==

== ENCOUNTER → 2024-09-23 | Outpatient (CLI) | payer MEDICARE, SELFPAY ==
--- NOTE | 2024-09-23 07:18 | CT_ITS ---
EXAM: CT Chest, Lung Cancer Screening Without Intravenous Contrast CLINICAL INDICATION: SMOKER TECHNIQUE: Axial computed tomography images of the chest without intravenous contrast using low dose (LDCT) lung cancer screening protocol. This CT exam was performed using one or more of the following dose reduction techniques: automated exposure control, adjustment of the mA and/or kV according to patient size, and/or use of iterative reconstruction technique. COMPARISON: No relevant prior studies available. FINDINGS: LUNGS AND PLEURAL SPACES: Ground-glass nodule in the left upper lobe, along the major fissure measuring up to 10 mm. This is likely secondary to infectious or inflammatory process. Lung emphysema. No consolidation. No pneumothorax. No significant effusion. HEART: Unremarkable. No cardiomegaly. No significant pericardial effusion. No significant coronary artery calcifications. BONES/JOINTS: Unremarkable. No acute fracture. No dislocation. SOFT TISSUES: Unremarkable. VASCULATURE: Unremarkable. No thoracic aortic aneurysm. LYMPH NODES: Unremarkable. No enlarged lymph nodes. CT/Low Dose CT Lung Screening IMPRESSION: 1. Ground-glass nodule in the left upper lobe, along the major fissure measuri ng up to 10 mm. This is likely secondary to infectious or inflammatory process. 2. LUNG-RADS 3: Probably benign. Continue low-dose CT screening of the chest in 6 months is recommended. Reading Location: [facility]
== END | disposition home or self-care (01) ==
LOC: CT 07:17
PROVIDERS: PCP Family Medicine; Referring Provider Nurse Practitioner Acute Care; Visit Provider Nurse Practitioner Acute Care
DX: F17.211 Nicotine dependence, cigarettes, in remission (principal); J44.9 Chronic obstructive pulmonary disease, unspecified
CPT/HCPCS: 71271; 94060; 94726; 94729

== ENCOUNTER → 2024-10-12 | Outpatient (CLI) | payer MEDICARE, SELFPAY ==
--- NOTE | 2024-10-12 11:23 | RAD_ITS ---
PROCEDURE: CHEST PA AND LATERAL 10/12/2024 REASON FOR EXAM: LEFT RIB PAIN TECHNIQUE: Frontal and lateral views of the chest. COMPARISON: CT scan of the chest dated 09/23/2024 FINDINGS: There is a patchy opacification identified in the lingula region compatible with a pneumonic infiltrate. Remaining lung slater are clear. Heart size and configuration are within limits. Pulmonary vasculature and hilar structures are unremarkable. Trachea is midline. Bony thorax is unremarkable. The ribs appear unremarkable. No displaced fractures are seen. RAD/Chest PA and Lateral IMPRESSION: Lingular airspace disease process most likely representing a pneumonic infiltra te. Reading Location: [id number]
== END | disposition home or self-care (01) ==
LOC: MTRAD 11:22
PROVIDERS: PCP Family Medicine
DX: R07.81 Pleurodynia (principal)
CPT/HCPCS: 71046

== ENCOUNTER → 2025-01-25 | Outpatient (CLI) | payer MEDICARE, SELFPAY | END | disposition home or self-care (01) | PROVIDERS: PCP Family Medicine | DX: R35.0 Frequency of micturition (principal) | CPT/HCPCS: 87086; 87088 ==

== ENCOUNTER → 2025-03-09 | Outpatient (CLI) | payer MEDICARE, SELFPAY | END | disposition home or self-care (01) | LOC: LABSPEC 16:26 | PROVIDERS: PCP Family Medicine; Visit Provider Family Medicine | DX: N39.0 Urinary tract infection, site not specified (principal) | CPT/HCPCS: 87086 ==

== ENCOUNTER 2025-03-17 15:45 | Outpatient (CLI) | payer MEDICARE, SELFPAY ==
[2025-03-17 19:21] LABS: Hematocrit 53.6 % (40-54); Mean Corp Hgb Conc 33.6 g/dL (32-36); Mean Corpuscular Volume 93.2 fL (80-94); Mean Platelet Vol. 11.0 fl (6.2-12.0); Platelet Count 146 K/mm3 (150-450); RBC Distribution Width CV 13.3 % (11.6-14.6); RBC Distribution Width SD 45.5 fl (35.1-43.9); Red Blood Count 5.75 M/mm3 (4.6-6.2); White Blood Count 6.9 K/mm3 (4.4-11.0)
[2025-03-17 19:27] LABS: Creatinine, Urine (random) 182.00 mg/dL (39.00-259.00); Microalbumin,Random Urine 385.0 mg/L (<20 mg/L)
[2025-03-17 19:56] LABS: Cholesterol 77 mg/dL (<=200); Low Density Lipoprotein Calc. 19 mg/dL; PSA,Total - Annual Screen 0.55 ng/mL (0.02-4.00); Triglycerides 126 mg/dL; Very Low Density Lipoprotein 25 mg/dL (5-40); Vitamin D,25 Hydroxy 35.8 ng/mL (30-100); cholesterol:hdl ratio screen 2.33
[2025-03-17 20:34] LABS: Hemoglobin 18.0 g/dL (13.0-16.5)
== END 2025-03-17 23:59 | disposition home or self-care (01) ==
LOC: MFPLAB 15:46
PROVIDERS: PCP Family Medicine; Visit Provider Family Medicine
DX: D64.9 Anemia, unspecified (principal); E11.9 Type 2 diabetes mellitus without complications; Z13.220 Encounter for screening for lipoid disorders; Z12.5 Encounter for screening for malignant neoplasm of prostate; R53.83 Other fatigue
CPT/HCPCS: 36415; 80061; 82043; 82306; 82570; 84153; 85027; G0103

== ENCOUNTER → 2025-04-14 | Outpatient (CLI) | payer MEDICARE, SELFPAY ==
[2025-04-14 10:39] LABS: Hematocrit 50.3 % (40-54); Hemoglobin 17.1 g/dL (13.0-16.5); Immature Granulocytes Count 0.020 X10^3/uL (0.0-0.0); Mean Corp Hgb Conc 34.0 g/dL (32-36); Mean Corpuscular Volume 92.8 fL (80-94); Mean Platelet Vol. 11.0 fl (6.2-12.0); NRBC Flagged by Analyzer 0 % (0-5); Platelet Count 133 K/mm3 (150-450); RBC Distribution Width CV 13.3 % (11.6-14.6); RBC Distribution Width SD 45.5 fl (35.1-43.9); Red Blood Count 5.42 M/mm3 (4.6-6.2); White Blood Count 4.8 K/mm3 (4.4-11.0)
== END | disposition home or self-care (01) ==
LOC: MFPLAB 08:58
PROVIDERS: PCP Family Medicine; Visit Provider Family Medicine
DX: R53.83 Other fatigue (principal)
CPT/HCPCS: 36415; 85025

== ENCOUNTER → 2025-04-14 | Outpatient (CLI) | payer MEDICARE, SELFPAY ==
--- NOTE | 2025-04-14 10:35 | US_ITS ---
PROCEDURE: US/Abdomen Limited
== END | disposition home or self-care (01) ==
LOC: US 10:30
PROVIDERS: PCP Family Medicine; Referring Provider Family Medicine; Visit Provider Family Medicine
DX: Z72.0 Tobacco use (principal)
CPT/HCPCS: 76705